=== PATIENT | female | born 1960 | race African-American/Black ===

== ENCOUNTER 2020-06-24 13:29 | Emergency (ER) | payer MEDICAID ==
[~2020-06-24] VITALS: Ht 190.5 cm; Wt 155.0 kg
[2020-06-24] MEDS ORDERED: ALBUTEROL (0.083%) 2.5MG/3ML NEB HHN STA ×2 (13:56→16:20)
[2020-06-24] MEDS ORDERED: IPRATROPIUM BROMIDE (0.02%) 0.5MG/2.5ML NEB HHN STA (13:56)
[2020-06-24] MEDS ORDERED: METHYLPREDNISOLONE SOD SUCC 125 MG/2 ML VIAL IV STA (13:56)
[2020-06-24] MEDS ORDERED: FUROSEMIDE 20MG/2ML VIAL IVP ONE (14:00)
[2020-06-24 14:31] LABS: BASOPHILS % 1.1 % (0.0-2.0); EOSINOPHILS % 0.2 % (0.0-5.0); HEMATOCRIT. 48.8 % (36.0-48.0); HEMOGLOBIN. 16.9 g/dL (12.0-16.0); LYMPHOCYTES % 25.5 % (20.0-50.0); MEAN CORPUSCULAR HEMOGLOBIN 32.1 pg (28.0-32.0); MEAN CORPUSCULAR VOLUME 92.6 fL (81.0-99.0); MEAN PLATELET VOLUME 10.6 fl (7.4-10.4); MONOCYTES % 5.1 % (2.0-8.0); NEUTROPHILS % 68.1 % (40.0-76.0); PLATELET 226 x1000/uL (130-400); RED BLOOD CELL COUNT 5.27 mill/uL (4.2-5.4)
[2020-06-24 14:38] LABS: CHLORIDE 97 mEq/L (98-107)
[2020-06-24] MEDS ORDERED: MORPHINE SULFATE 4 MG/ML CPJ (NOT FOR IM USE) IV ONE (15:15)
[2020-06-24] MEDS ORDERED: INSULIN REGULAR (HUMULIN R) 300UNITS/3ML SUBCUT ONE (15:30)
[2020-06-24 17:09] VITALS: BP 140/80
== END 2020-06-24 17:14 | disposition home or self-care (01) ==
LOC: ER 13:29
DX: J44.1 Chronic obstructive pulmonary disease with (acute) exacerbation (principal); J45.901 Unspecified asthma with (acute) exacerbation; M79.605 Pain in left leg; M79.604 Pain in right leg; E78.00 Pure hypercholesterolemia, unspecified; I10 Essential (primary) hypertension
CPT/HCPCS: 36415; 71045; 80053; 83880; 84484; 85025; 93005; 93970; 94640; 96372; 96374; 96375; 99285; J1815; J1940; J2270; J2930; Z7610

== ENCOUNTER 2020-07-08 12:05 | Inpatient (IN) | payer MEDICAID, OTHER ==
[~2020-07-08] VITALS: Ht 190.5 cm; Wt 148.3 kg
[2020-07-08] MEDS ORDERED: SODIUM CHLORIDE 0.9% 1,000 ML IV ONE (13:05)
[2020-07-08] MEDS ORDERED: ACETAMINOPHEN 325MG TABLET PO ONE (13:15)
[2020-07-08 13:17] LABS: CLARITY URINE CLEAR (CLEAR); COLOR URINE YELLOW (YELLOW); KETONES URINE 1+ (NEGATIVE); LEUKOCYTE ESTERASE URINE NEGATIVE (NEGATIVE); NITRITE URINE NEGATIVE (NEGATIVE); OCCULT BLOOD URINE NEGATIVE (NEGATIVE); PH URINE 5.5 (4.5-8.0); PROTEIN URINE NEGATIVE (NEGATIVE); SPECIFIC GRAVITY URINE 1.033 (1.005-1.030); UROBILINOGEN URINE 0.2 E.U./dL (0.2-1.0)
[2020-07-08 13:42] LABS: CHLORIDE 93 mEq/L (98-107)
[2020-07-08 13:46] LABS: BASOPHILS % 0.6 % (0.0-2.0); EOSINOPHILS % 0.7 % (0.0-5.0); HEMATOCRIT. 46.7 % (36.0-48.0); HEMOGLOBIN. 16.1 g/dL (12.0-16.0); LYMPHOCYTES % 21.8 % (20.0-50.0); MEAN CORPUSCULAR HEMOGLOBIN 31.8 pg (28.0-32.0); MEAN CORPUSCULAR VOLUME 92.4 fL (81.0-99.0); MEAN PLATELET VOLUME 10.7 fl (7.4-10.4); MONOCYTES % 8.5 % (2.0-8.0); NEUTROPHILS % 68.4 % (40.0-76.0); PLATELET 202 x1000/uL (130-400); RED BLOOD CELL COUNT 5.05 mill/uL (4.2-5.4); RED CELL DISTRIBUTION WIDTH 13.9 % (11.6-14.6)
[2020-07-08] MEDS ORDERED: FUROSEMIDE 40MG/4ML VIAL IVP ONE (14:15)
[2020-07-08] MEDS ORDERED: FLUCONAZOLE 100MG TABLET PO ONE (14:15)
[2020-07-08 14:24] LABS: HCG SCREEN NEGATIVE
[2020-07-08] MEDS ORDERED: HYDROCODONE/ACETAMINOPHEN 5/325MG TABLET PO ONE (14:30)
[2020-07-08] MEDS ORDERED: INSULIN LISPRO 100 UNITS/ML SUBCUT NR ×2 (15:00→23:00)
[2020-07-08] MEDS ORDERED: DIPHENHYDRAMINE 25MG CAPSULE PO ONE (20:00)
[2020-07-08 21:05] VITALS: BP 130/91
[2020-07-08] MEDS ORDERED: FURO-151 MT (21:48)
[2020-07-08] MEDS ORDERED: INSU100I28 SQ (21:48)
[2020-07-08] MEDS ORDERED: CARV12.545 PO (21:48)
[2020-07-08] MEDS ORDERED: HYDR-4001 PO (21:48)
[2020-07-08] MEDS ORDERED: DEXTROSE 50% WATER 50ML SYRINGE IV PRN (22:00)
[2020-07-08] MEDS ORDERED: ONDANSETRON HCL 4MG/2ML INJ IV PRN (22:00)
[2020-07-08] MEDS ORDERED: FLUCONAZOLE 150MG TABLET PO ONE (22:00)
[2020-07-08] MEDS ORDERED: DIPHENHYDRAMINE 50MG/ML VIAL IV PRN (22:00)
[2020-07-08] MEDS ORDERED: ACETAMINOPHEN 325MG TABLET PO PRN (22:00)
[2020-07-08] MEDS: BLOOD SUGAR DIAGNOSTIC STRIP TEST SCH (23:25)
[2020-07-08] MEDS: ATORVASTATIN CALCIUM 40MG TABLET PO SCH (23:27)
[2020-07-08] MEDS: ENOXAPARIN 40MG/0.4ML SYR SUBCUT SCH (23:29)
[2020-07-08] MEDS: INSULIN GLARGINE UD 100 UNITS/ML SYR SUBCUT SCH (23:30)
[2020-07-08] MEDS: HYDROCODONE/ACETAMINOPHEN 5/325MG TABLET PO PRN (23:33)
[2020-07-08] MEDS: INSULIN LISPRO 100 UNITS/ML SUBCUT SCH (23:34)
[2020-07-09] VITALS: BP 155/98
[2020-07-09] MEDS: ALBUTEROL (0.083%) 2.5MG/3ML NEB HHN PRN (00:06)
[2020-07-09 04:00] VITALS: BP 115/103
[2020-07-09] MEDS ORDERED: INSULIN LISPRO 100 UNITS/ML SUBCUT SCH ×2 (06:15)
[2020-07-09 06:50] LABS: BASOPHILS % 0.6 % (0.0-2.0); EOSINOPHILS % 0.8 % (0.0-5.0); HEMATOCRIT. 45.6 % (36.0-48.0); HEMOGLOBIN. 15.6 g/dL (12.0-16.0); LYMPHOCYTES % 31.6 % (20.0-50.0); MEAN CORPUSCULAR HEMOGLOBIN 31.9 pg (28.0-32.0); MEAN CORPUSCULAR VOLUME 93.1 fL (81.0-99.0); MONOCYTES % 11.4 % (2.0-8.0); NEUTROPHILS % 55.6 % (40.0-76.0); PLATELET 190 x1000/uL (130-400); RED BLOOD CELL COUNT 4.89 mill/uL (4.2-5.4); RED CELL DISTRIBUTION WIDTH 13.6 % (11.6-14.6)
[2020-07-09] MEDS: BLOOD SUGAR DIAGNOSTIC STRIP TEST SCH ×5 (06:59→20:32)
[2020-07-09] MEDS: INSULIN LISPRO 100 UNITS/ML SUBCUT SCH ×6 (06:59→21:03)
[2020-07-09 07:01] LABS: CHLORIDE 91 mEq/L (98-107)
[2020-07-09] MEDS: HYDROCODONE/ACETAMINOPHEN 5/325MG TABLET PO PRN ×3 (07:05→18:18)
[2020-07-09 07:19] LABS: LDL CHOLESTEROL 133 mg/dL (5-100)
[2020-07-09 07:21] LABS: HDL CHOLESTEROL 41 mg/dL (40-59)
[2020-07-09 08:00] VITALS: BP 151/98
[2020-07-09] MEDS ORDERED: DEXTROSE 50% WATER 50ML SYRINGE IV PRN (08:15)
[2020-07-09] MEDS ORDERED: POTASSIUM CHLORIDE 20MEQ TABLET SR PO SCH (09:00)
[2020-07-09] MEDS ORDERED: CARVEDILOL 12.5MG TABLET PO SCH (09:00)
[2020-07-09] MEDS: FUROSEMIDE 40MG/4ML VIAL IVP SCH ×2 (09:37→21:01)
[2020-07-09] MEDS: ENOXAPARIN 40MG/0.4ML SYR SUBCUT SCH ×2 (09:37→21:01)
[2020-07-09] MEDS: LISINOPRIL 20MG TABLET PO SCH (09:38)
[2020-07-09] MEDS: INSULIN GLARGINE UD 100 UNITS/ML SYR SUBCUT SCH (09:39)
[2020-07-09 12:00] VITALS: BP 118/84
[2020-07-09 16:00] VITALS: BP 119/78
[2020-07-09 20:00] VITALS: BP 111/72
[2020-07-09] MEDS: ATORVASTATIN CALCIUM 40MG TABLET PO SCH (21:01)
[2020-07-09] MEDS ORDERED: INSULIN GLARGINE UD 100 UNITS/ML SYR SUBCUT SCH (22:00)
[2020-07-09] MEDS: DOCUSATE SODIUM 250MG CAPSULE PO SCH (23:11)
[2020-07-09] MEDS: CLOTRIMAZOLE 1% VAGINAL CREAM 45GM VG SCH (23:55)
[2020-07-10] VITALS: BP 128/91
[2020-07-10] MEDS: BLOOD SUGAR DIAGNOSTIC STRIP TEST SCH ×4 (05:34→21:23)
[2020-07-10] MEDS: INSULIN LISPRO 100 UNITS/ML SUBCUT SCH ×7 (06:01→21:00)
[2020-07-10 08:00] VITALS: BP 105/62
[2020-07-10] MEDS: BUDESONIDE 0.5MG/2ML NEB HHN SCH ×2 (08:00→16:19)
[2020-07-10 08:19] LABS: *AMPHETAMINES SCREEN URINE NEGATIVE (NEGATIVE); *BARBITURATES SCREEN URINE NEGATIVE (NEGATIVE); *BENZODIAZEPINES SCREEN URINE NEGATIVE (NEGATIVE); *COCAINE SCREEN URINE NEGATIVE (NEGATIVE); METHADONE URINE SCREEN NEGATIVE (NEGATIVE)
[2020-07-10 08:20] LABS: CANNABINOID URINE SCREEN NEGATIVE (NEGATIVE); OPIATES URINE SCREEN PRESUMTIVE POSITIVE (NEGATIVE); PHENCYCLIDINE URINE SCREEN NEGATIVE (NEGATIVE)
[2020-07-10] MEDS: DOCUSATE SODIUM 250MG CAPSULE PO SCH ×2 (08:36→17:40)
[2020-07-10] MEDS: FUROSEMIDE 40MG/4ML VIAL IVP SCH ×2 (08:36→21:21)
[2020-07-10] MEDS: ENOXAPARIN 40MG/0.4ML SYR SUBCUT SCH ×2 (08:36→21:21)
[2020-07-10] MEDS: LISINOPRIL 20MG TABLET PO SCH (08:37)
[2020-07-10] MEDS: POTASSIUM CHLORIDE 20MEQ TABLET SR PO SCH (08:37)
[2020-07-10] MEDS: INSULIN GLARGINE UD 100 UNITS/ML SYR SUBCUT SCH ×2 (10:49→22:03)
[2020-07-10 12:00] VITALS: BP 116/83
[2020-07-10 16:00] VITALS: BP 112/69
[2020-07-10] MEDS: ALBUTEROL (0.083%) 2.5MG/3ML NEB HHN PRN (16:19)
[2020-07-10 20:00] VITALS: BP 112/67
[2020-07-10] MEDS ORDERED: INSULIN LISPRO 100 UNITS/ML SUBCUT NR (20:30)
[2020-07-10] MEDS: CLOTRIMAZOLE 1% VAGINAL CREAM 45GM VG SCH (21:21)
[2020-07-10] MEDS: ATORVASTATIN CALCIUM 40MG TABLET PO SCH (21:21)
[2020-07-11 04:00] VITALS: BP 132/92
[2020-07-11] MEDS: INSULIN LISPRO 100 UNITS/ML SUBCUT SCH ×7 (06:23→22:25)
[2020-07-11] MEDS: BLOOD SUGAR DIAGNOSTIC STRIP TEST SCH ×4 (06:25→22:25)
[2020-07-11] MEDS ORDERED: GLIPIZIDE 5MG TABLET PO SCH (07:10)
[2020-07-11 08:00] VITALS: BP 121/69
[2020-07-11] MEDS: POTASSIUM CHLORIDE 20MEQ TABLET SR PO SCH (08:41)
[2020-07-11] MEDS: DOCUSATE SODIUM 250MG CAPSULE PO SCH ×2 (08:41→17:50)
[2020-07-11] MEDS: LISINOPRIL 20MG TABLET PO SCH (08:41)
[2020-07-11] MEDS: ENOXAPARIN 40MG/0.4ML SYR SUBCUT SCH ×2 (08:42→22:20)
[2020-07-11] MEDS: FUROSEMIDE 40MG/4ML VIAL IVP SCH ×2 (08:44→21:00)
[2020-07-11] MEDS: INSULIN GLARGINE UD 100 UNITS/ML SYR SUBCUT SCH ×2 (10:44→22:42)
[2020-07-11 12:00] VITALS: BP 112/72
[2020-07-11] MEDS: BUDESONIDE 0.5MG/2ML NEB HHN SCH ×2 (13:00→22:01)
[2020-07-11 16:00] VITALS: BP 117/79
[2020-07-11 17:04] LABS: CHLORIDE 93 mEq/L (98-107)
[2020-07-11] MEDS: HYDROCODONE/ACETAMINOPHEN 5/325MG TABLET PO PRN ×2 (18:02→23:00)
[2020-07-11 20:00] VITALS: BP 110/73
[2020-07-11] MEDS: ATORVASTATIN CALCIUM 40MG TABLET PO SCH (22:19)
[2020-07-11] MEDS ORDERED: INSULIN LISPRO 100 UNITS/ML SUBCUT NR (22:27)
[2020-07-12] MEDS: CLOTRIMAZOLE 1% VAGINAL CREAM 45GM VG SCH ×2 (00:35→21:44)
[2020-07-12] MEDS: FUROSEMIDE 40MG/4ML VIAL IVP SCH ×3 (00:35→21:39)
[2020-07-12] MEDS: BLOOD SUGAR DIAGNOSTIC STRIP TEST SCH ×4 (07:04→21:00)
[2020-07-12] MEDS: GLIPIZIDE 5MG TABLET PO SCH (07:05)
[2020-07-12 08:00] VITALS: BP 127/81
[2020-07-12] MEDS: BUDESONIDE 0.5MG/2ML NEB HHN SCH ×2 (08:15→20:08)
[2020-07-12] MEDS: ALBUTEROL (0.083%) 2.5MG/3ML NEB HHN PRN (08:15)
[2020-07-12] MEDS: DOCUSATE SODIUM 250MG CAPSULE PO SCH ×2 (08:27→17:00)
[2020-07-12] MEDS: POTASSIUM CHLORIDE 20MEQ TABLET SR PO SCH (08:27)
[2020-07-12] MEDS: ENOXAPARIN 40MG/0.4ML SYR SUBCUT SCH ×2 (08:28→21:39)
[2020-07-12] MEDS: LISINOPRIL 20MG TABLET PO SCH (08:33)
[2020-07-12] MEDS: INSULIN LISPRO 100 UNITS/ML SUBCUT SCH ×7 (08:35→22:28)
[2020-07-12] MEDS ORDERED: LOSA50TA41 MT (08:52)
[2020-07-12] MEDS ORDERED: GLIP5TAB12 PO (08:52)
[2020-07-12] MEDS ORDERED: LIP40 PO (08:52)
[2020-07-12] MEDS ORDERED: ALBU18HF2 IH (08:52)
[2020-07-12] MEDS ORDERED: POTA20TA82 PO (08:52)
[2020-07-12] MEDS ORDERED: FLUT1DIS3 INH (08:52)
[2020-07-12] MEDS ORDERED: FURO-151 MT (08:52)
[2020-07-12] MEDS ORDERED: INSLIS SUBCUT (08:52)
[2020-07-12] MEDS: INSULIN GLARGINE UD 100 UNITS/ML SYR SUBCUT SCH ×2 (10:58→22:26)
[2020-07-12 12:00] VITALS: BP 118/67
[2020-07-12 16:00] VITALS: BP 133/84
[2020-07-12] MEDS ORDERED: GLIPIZIDE 10MG TABLET PO SCH (17:30)
[2020-07-12] MEDS: HYDROCODONE/ACETAMINOPHEN 5/325MG TABLET PO PRN ×2 (17:51→22:35)
[2020-07-12 20:00] VITALS: BP 119/67
[2020-07-12] MEDS: ATORVASTATIN CALCIUM 40MG TABLET PO SCH (21:39)
[2020-07-13] VITALS: BP 104/71
[2020-07-13] MEDS: HYDROCODONE/ACETAMINOPHEN 5/325MG TABLET PO PRN (03:48)
[2020-07-13 04:00] VITALS: BP 108/69
[2020-07-13] MEDS: INSULIN LISPRO 100 UNITS/ML SUBCUT SCH ×6 (06:29→17:25)
[2020-07-13 08:00] VITALS: BP 127/86
[2020-07-13] MEDS: LISINOPRIL 20MG TABLET PO SCH (08:16)
[2020-07-13] MEDS: DOCUSATE SODIUM 250MG CAPSULE PO SCH ×2 (08:16→17:22)
[2020-07-13] MEDS: POTASSIUM CHLORIDE 20MEQ TABLET SR PO SCH (08:16)
[2020-07-13] MEDS: FUROSEMIDE 40MG/4ML VIAL IVP SCH (08:17)
[2020-07-13] MEDS: ENOXAPARIN 40MG/0.4ML SYR SUBCUT SCH (08:17)
[2020-07-13] MEDS: GLIPIZIDE 5MG TABLET PO SCH (08:17)
[2020-07-13] MEDS: INSULIN GLARGINE UD 100 UNITS/ML SYR SUBCUT SCH (11:08)
[2020-07-13 12:00] VITALS: BP 123/86
[2020-07-13] MEDS: BLOOD SUGAR DIAGNOSTIC STRIP TEST SCH ×2 (12:14→17:18)
[2020-07-13] MEDS ORDERED: GLIPIZIDE 10MG TABLET PO SCH (15:15)
[2020-07-13 16:00] VITALS: BP 132/93
[2020-07-13 16:36] VITALS: BP 132/93
== END 2020-07-13 18:24 | disposition home or self-care (01) | DRG 194 ==
LOC: ER 12:05 → 8WST 19:45 → ENRESERV 20:32
PROVIDERS: ADMIT Internal Medicine; ATTEND Internal Medicine
DX: I11.0 Hypertensive heart disease with heart failure (principal); I50.33 Acute on chronic diastolic (congestive) heart failure; E87.1 Hypo-osmolality and hyponatremia; E78.5 Hyperlipidemia, unspecified; E66.9 Obesity, unspecified; E44.1 Mild protein-calorie malnutrition; E87.8 Other disorders of electrolyte and fluid balance, not elsewhere classified; B37.9 Candidiasis, unspecified; J45.909 Unspecified asthma, uncomplicated; J44.9 Chronic obstructive pulmonary disease, unspecified; E11.65 Type 2 diabetes mellitus with hyperglycemia; E78.00 Pure hypercholesterolemia, unspecified; Z88.0 Allergy status to penicillin; Z68.41 Body mass index [BMI] 40.0-44.9, adult; Z79.899 Other long term (current) drug therapy
CPT/HCPCS: 36415; 80048; 80053; 80061; 80305; 81003; 82962; 83036; 83880; 84484; 84703; 85025; 93005; 93971; 94640; 99285; J1650; J1815; J1940; J7030; J7626; Q0163

== ENCOUNTER 2020-09-30 11:48 | Emergency (ER) | payer OTHER ==
[~2020-09-30] VITALS: Ht 190.5 cm; Wt 148.0 kg
[~2020-09-30 11:48] MED LIST: ALBU18HF2 IH; FLUT1DIS3 INH; FURO-151 MT; GLIP5TAB12 PO; HYDR-4001 PO; INSLIS SUBCUT; INSU100I28 SQ; LIP40 PO; LOSA50TA41 MT; POTA20TA82 PO
[2020-09-30 14:59] LABS: BASOPHILS % 0.5 % (0.0-2.0); EOSINOPHILS % 0.2 % (0.0-5.0); HEMATOCRIT. 47.6 % (36.0-48.0); HEMOGLOBIN. 16.6 g/dL (12.0-16.0); LYMPHOCYTES % 23.1 % (20.0-50.0); MEAN CORPUSCULAR HEMOGLOBIN 32.5 pg (28.0-32.0); MEAN CORPUSCULAR VOLUME 93.2 fL (81.0-99.0); MEAN PLATELET VOLUME 11.2 fl (7.4-10.4); MONOCYTES % 9.5 % (2.0-8.0); NEUTROPHILS % 66.7 % (40.0-76.0); PLATELET 241 x1000/uL (130-400); RED BLOOD CELL COUNT 5.11 mill/uL (4.2-5.4); RED CELL DISTRIBUTION WIDTH 13.9 % (11.6-14.6)
[2020-09-30 15:20] LABS: CHLORIDE 92 mEq/L (98-107)
[2020-09-30] MEDS ORDERED: FUROSEMIDE 40MG/4ML VIAL IVP ONE (15:30)
[2020-09-30] MEDS ORDERED: INSULIN LISPRO 100 UNITS/ML SUBCUT ONE (16:30)
[2020-09-30 21:12] VITALS: BP 144/93
== END 2020-09-30 22:01 | disposition home or self-care (01) ==
LOC: ER 11:48 → CANBEDREQ 15:19 → ER 22:01
DX: I11.0 Hypertensive heart disease with heart failure (principal); I50.9 Heart failure, unspecified; E11.65 Type 2 diabetes mellitus with hyperglycemia; J44.1 Chronic obstructive pulmonary disease with (acute) exacerbation; J45.909 Unspecified asthma, uncomplicated; E78.00 Pure hypercholesterolemia, unspecified; Z98.890 Other specified postprocedural states; Z79.899 Other long term (current) drug therapy; Z79.4 Long term (current) use of insulin
CPT/HCPCS: 36415; 71045; 80053; 82962; 83880; 84484; 85025; 93005; 93970; 96372; 96374; 99285; J1815; J1940

== ENCOUNTER 2020-12-24 10:17 | Emergency (ER) | payer OTHER ==
[~2020-12-24] VITALS: Ht 177.8 cm; Wt 80.0 kg
[~2020-12-24 10:17] MED LIST changes: +AMLO10TA80 PO; +HYDR-4009 MT; +HYDR-4135 PO; +LANTUSUD SUBCUT; +LOSA100T3 PO
[2020-12-24] MEDS ORDERED: KETOROLAC 60MG/2ML VIAL IM ONE (11:00)
[2020-12-24] MEDS ORDERED: SULFAMETHOXAZOLE/TRIMETHOPRIM 800/160MG TABLET PO ONE (11:00)
[2020-12-24] MEDS ORDERED: CEPHALEXIN 250MG CAPSULE PO ONE (11:00)
[2020-12-24] MEDS ORDERED: SULF1TAB48 MT (12:17)
[2020-12-24] MEDS ORDERED: IBUP-2028 MT (12:17)
[2020-12-24] MEDS ORDERED: CEPH250C2 MT (12:17)
[2020-12-24] MEDS ORDERED: OXYC-100 MT (12:17)
[2020-12-24 12:55] VITALS: BP 156/99
== END 2020-12-24 12:56 | disposition home or self-care (01) ==
LOC: ER 10:31
DX: L03.312 Cellulitis of back [any part except buttock and flank] (principal); M54.5 Low back pain; J45.909 Unspecified asthma, uncomplicated; I11.0 Hypertensive heart disease with heart failure; I50.9 Heart failure, unspecified; E11.9 Type 2 diabetes mellitus without complications; E78.00 Pure hypercholesterolemia, unspecified; Z79.4 Long term (current) use of insulin; Z88.0 Allergy status to penicillin; Z88.6 Allergy status to analgesic agent
CPT/HCPCS: 93005; 96372; 99283; J1885

== ENCOUNTER 2020-12-25 18:47 | Emergency (ER) | payer OTHER ==
[~2020-12-25] VITALS: Ht 172.7 cm; Wt 113.0 kg
[~2020-12-25 18:47] MED LIST changes: +CEPH250C2 MT; +IBUP-2028 MT; +OXYC-100 MT; +SULF1TAB48 MT
[2020-12-25] MEDS ORDERED: HYDROCODONE/ACETAMINOPHEN 5/325MG TABLET PO ONE (20:00)
[2020-12-25] MEDS ORDERED: MORPHINE SULFATE 10 MG/ML CPJ IM ONE (20:30)
[2020-12-25] MEDS ORDERED: ONDANSETRON 4MG ODT PO ONE (20:30)
[2020-12-25] MEDS ORDERED: MAGNESIUM CITRATE 300ML SOLUTION PO ONE (21:30)
[2020-12-25 22:30] VITALS: BP 126/76
== END 2020-12-25 23:39 | disposition home or self-care (01) ==
LOC: ER 18:47
DX: M54.9 Dorsalgia, unspecified (principal); K59.00 Constipation, unspecified; J44.9 Chronic obstructive pulmonary disease, unspecified; I11.0 Hypertensive heart disease with heart failure; I50.9 Heart failure, unspecified; E11.9 Type 2 diabetes mellitus without complications; Z79.4 Long term (current) use of insulin
CPT/HCPCS: 74021; 74176; 93005; 96372; 99284; J2270; Q0162

== ENCOUNTER 2021-09-01 12:30 | Inpatient (IN) | payer OTHER ==
[~2021-09-01] VITALS: Ht 190.5 cm; Wt 149.7 kg
[2021-09-01] MEDS ORDERED: ALBUTEROL (0.083%) 2.5MG/3ML NEB HHN STA (15:05)
[2021-09-01] MEDS ORDERED: IPRATROPIUM BROMIDE (0.02%) 0.5MG/2.5ML NEB HHN STA (15:05)
[2021-09-01] MEDS ORDERED: METHYLPREDNISOLONE SOD SUCC 125 MG/2 ML VIAL IV STA (15:05)
[2021-09-01] MEDS ORDERED: MORPHINE SULFATE 4 MG/ML CPJ (NOT FOR IM USE) IV STA (15:24)
[2021-09-01] MEDS ORDERED: ONDANSETRON HCL 4MG/2ML INJ IV STA (15:24)
[2021-09-01] MEDS ORDERED: NITROGLYCERIN OINT 1GM/INCH UDPKT TD ONE (15:30)
[2021-09-01 15:44] LABS: BASOPHILS % 0.5 % (0.0-2.0); EOSINOPHILS % 0.2 % (0.0-5.0); HEMATOCRIT. 44.2 % (36.0-48.0); HEMOGLOBIN. 15.4 g/dL (12.0-16.0); LYMPHOCYTES % 19.2 % (20.0-50.0); MEAN CORPUSCULAR HEMOGLOBIN 32.1 pg (28.0-32.0); MEAN CORPUSCULAR VOLUME 92.3 fL (81.0-99.0); MEAN PLATELET VOLUME 9.4 fl (7.4-10.4); MONOCYTES % 7.3 % (2.0-8.0); NEUTROPHILS % 72.8 % (40.0-76.0); PLATELET 276 x1000/uL (130-400); RED BLOOD CELL COUNT 4.79 mill/uL (4.2-5.4)
[2021-09-01 15:50] LABS: CHLORIDE 97 mEq/L (98-107)
[2021-09-01 16:05] LABS: INR 0.9; PROTHROMBIN TIME 10.1 sec (9.6-11.0)
[2021-09-01] MEDS ORDERED: SODIUM CHLORIDE 0.9% 500 ML IV ONE (16:30)
[2021-09-01] MEDS ORDERED: INSULIN REGULAR (HUMULIN R) 300UNITS/3ML VIAL SUBCUT NR ×2 (16:30→20:15)
[2021-09-01] MEDS ORDERED: INSULIN REGULAR (HUMULIN R) UD 100 UNITS/ML SYR SUBCUT ONE (19:45)
[2021-09-01] MEDS ORDERED: MORPHINE SULFATE 2 MG/ML CPJ (NOT FOR IM USE) IV PRN (20:45)
[2021-09-01] MEDS ORDERED: INSULIN LISPRO 100 UNITS/ML SUBCUT NR (22:15)
[2021-09-01] MEDS ORDERED: ALBUTEROL (0.083%) 2.5MG/3ML NEB HHN NR ×2 (23:00→23:15)
[2021-09-01] MEDS ORDERED: IPRATROPIUM BROMIDE (0.02%) 0.5MG/2.5ML NEB HHN NR ×2 (23:00→23:15)
[2021-09-01] MEDS ORDERED: INSULIN LISPRO 100 UNITS/ML SUBCUT SCH (23:45)
[2021-09-02] VITALS (8 sets, daily range): BP systolic 122–155; BP diastolic 75–90
[2021-09-02] MEDS ORDERED: INSULIN REGULAR (HUMULIN R) 300UNITS/3ML VIAL SUBCUT SCH (00:15)
[2021-09-02] MEDS ORDERED: INSULIN LISPRO 100 UNITS/ML SUBCUT SCH ×4 (01:00→05:00)
[2021-09-02 01:01] LABS: CLARITY URINE CLEAR (CLEAR); COLOR URINE YELLOW (YELLOW); KETONES URINE NEGATIVE (NEGATIVE); LEUKOCYTE ESTERASE URINE NEGATIVE (NEGATIVE); NITRITE URINE NEGATIVE (NEGATIVE); OCCULT BLOOD URINE NEGATIVE (NEGATIVE); PH URINE 5.5 (4.5-8.0); PROTEIN URINE NEGATIVE (NEGATIVE); SPECIFIC GRAVITY URINE 1.027 (1.005-1.030); UROBILINOGEN URINE 0.2 E.U./dL (0.2-1.0)
[2021-09-02 03:41] LABS: CHLORIDE 95 mEq/L (98-107)
[2021-09-02] MEDS ORDERED: FURO-151 PO (07:00)
[2021-09-02] MEDS ORDERED: AMLO10TA80 MT (07:00)
[2021-09-02] MEDS ORDERED: HYDR100T26 PO (07:00)
[2021-09-02] MEDS ORDERED: LOSA100T32 MT (07:00)
[2021-09-02] MEDS ORDERED: DEXTROSE 50% WATER 50ML SYRINGE IV PRN (07:30)
[2021-09-02] MEDS ORDERED: NALOXONE HCL 0.4MG/ML VIAL IV PRN (07:45)
[2021-09-02] MEDS ORDERED: MORPHINE SULFATE 2 MG/ML CPJ (NOT FOR IM USE) IV PRN (08:15)
[2021-09-02] MEDS ORDERED: *PATIENT'S OWN MEDICATION STORAGE XX SCH (08:30)
[2021-09-02] MEDS ORDERED: FLUCONAZOLE 50MG TABLET PO ONE (09:15)
[2021-09-02 09:42] LABS: BASOPHILS % 0.1 % (0.0-2.0); HEMATOCRIT. 42.6 % (36.0-48.0); HEMOGLOBIN. 14.3 g/dL (12.0-16.0); LYMPHOCYTES % 10.6 % (20.0-50.0); MEAN CORPUSCULAR HEMOGLOBIN 31.2 pg (28.0-32.0); MEAN CORPUSCULAR VOLUME 93.2 fL (81.0-99.0); MEAN PLATELET VOLUME 9.5 fl (7.4-10.4); MONOCYTES % 4.8 % (2.0-8.0); NEUTROPHILS % 84.5 % (40.0-76.0); PLATELET 249 x1000/uL (130-400); RED BLOOD CELL COUNT 4.57 mill/uL (4.2-5.4); RED CELL DISTRIBUTION WIDTH 14.2 % (11.6-14.6)
[2021-09-02] MEDS: ENOXAPARIN 40MG/0.4ML SYR SUBCUT SCH ×2 (09:47→20:45)
[2021-09-02] MEDS: LOSARTAN POTASSIUM 100 MG TABLET PO SCH (09:48)
[2021-09-02] MEDS: METFORMIN HCL 500MG TABLET PO SCH ×2 (09:48→18:10)
[2021-09-02] MEDS: AMLODIPINE 10MG TABLET PO SCH (09:48)
[2021-09-02] MEDS: ASPIRIN 81MG TABLET PO SCH (09:49)
[2021-09-02 09:59] LABS: CHLORIDE 96 mEq/L (98-107)
[2021-09-02] MEDS ORDERED: FLUCONAZOLE 150MG TABLET PO NR (10:00)
[2021-09-02] MEDS ORDERED: INSULIN GLARGINE UD 100 UNITS/ML SYR SUBCUT SCH (10:00)
[2021-09-02 10:05] LABS: LDL CHOLESTEROL 155 mg/dL (5-100)
[2021-09-02 10:07] LABS: HDL CHOLESTEROL 74 mg/dL (40-59)
[2021-09-02] MEDS ORDERED: INSULIN LISPRO 100 UNITS/ML SUBCUT NR ×2 (10:45→13:15)
[2021-09-02] MEDS: HYDROCODONE/ACETAMINOPHEN 5/325MG TABLET PO PRN ×3 (10:45→20:44)
[2021-09-02] MEDS: BLOOD SUGAR DIAGNOSTIC STRIP TEST SCH ×3 (12:10→21:00)
[2021-09-02] MEDS: INSULIN LISPRO 100 UNITS/ML SUBCUT SCH ×5 (12:40→22:19)
[2021-09-02] MEDS: FUROSEMIDE 100MG/10ML VIAL IVP SCH ×2 (13:34→20:44)
[2021-09-02] MEDS: IPRATROPIUM/ALBUTEROL 0.5-3(2.5)MG/3ML NEB HHN SCH ×2 (15:48→20:02)
[2021-09-02] MEDS: ATORVASTATIN CALCIUM 40MG TABLET PO SCH (20:45)
[2021-09-02] MEDS: CLOTRIMAZOLE 1% VAGINAL CREAM 45GM VG SCH (22:20)
[2021-09-02] MEDS: INSULIN GLARGINE UD 100 UNITS/ML SYR SUBCUT SCH (22:20)
[2021-09-03] VITALS: BP 138/70
[2021-09-03] MEDS: IPRATROPIUM/ALBUTEROL 0.5-3(2.5)MG/3ML NEB HHN SCH ×7 (00:17→20:20)
[2021-09-03 04:00] VITALS: BP 122/89
[2021-09-03] MEDS ORDERED: INSULIN LISPRO 100 UNITS/ML SUBCUT NR ×2 (05:45→09:00)
[2021-09-03] MEDS: INSULIN LISPRO 100 UNITS/ML SUBCUT SCH ×7 (05:50→20:55)
[2021-09-03] MEDS: BLOOD SUGAR DIAGNOSTIC STRIP TEST SCH ×4 (05:50→20:50)
[2021-09-03] MEDS: FUROSEMIDE 100MG/10ML VIAL IVP SCH ×2 (05:50→17:31)
[2021-09-03] MEDS: HYDROCODONE/ACETAMINOPHEN 5/325MG TABLET PO PRN ×3 (06:07→20:50)
[2021-09-03] MEDS ORDERED: INSULIN LISPRO 100 UNITS/ML SUBCUT SCH (07:30)
[2021-09-03 08:00] VITALS: BP 128/78
[2021-09-03] MEDS: ASPIRIN 81MG TABLET PO SCH (08:29)
[2021-09-03] MEDS: AMLODIPINE 10MG TABLET PO SCH (08:29)
[2021-09-03] MEDS: LOSARTAN POTASSIUM 100 MG TABLET PO SCH (08:29)
[2021-09-03] MEDS: ENOXAPARIN 40MG/0.4ML SYR SUBCUT SCH ×2 (08:29→20:49)
[2021-09-03] MEDS: METFORMIN HCL 500MG TABLET PO SCH ×2 (08:30→17:31)
[2021-09-03] MEDS: INSULIN GLARGINE UD 100 UNITS/ML SYR SUBCUT SCH ×2 (10:29→20:54)
[2021-09-03 12:00] VITALS: BP 136/82
[2021-09-03] MEDS ORDERED: METOLAZONE 2.5MG TABLET PO NR (13:00)
[2021-09-03 16:00] VITALS: BP 148/84
[2021-09-03 18:45] LABS: *AMPHETAMINES SCREEN URINE NEGATIVE (NEGATIVE); *BARBITURATES SCREEN URINE NEGATIVE (NEGATIVE); *BENZODIAZEPINES SCREEN URINE NEGATIVE (NEGATIVE); *COCAINE SCREEN URINE NEGATIVE (NEGATIVE); METHADONE URINE SCREEN NEGATIVE (NEGATIVE)
[2021-09-03 18:46] LABS: CANNABINOID URINE SCREEN NEGATIVE (NEGATIVE); OPIATES URINE SCREEN PRESUMTIVE POSITIVE (NEGATIVE); PHENCYCLIDINE URINE SCREEN NEGATIVE (NEGATIVE)
[2021-09-03] MEDS ORDERED: NALOXONE HCL 0.4MG/ML VIAL IV PRN (19:45)
[2021-09-03 20:00] VITALS: BP 132/82
[2021-09-03] MEDS: CLOTRIMAZOLE 1% VAGINAL CREAM 45GM VG SCH (20:48)
[2021-09-03] MEDS: DOCUSATE SODIUM 250MG CAPSULE PO PRN (20:49)
[2021-09-03] MEDS: ATORVASTATIN CALCIUM 40MG TABLET PO SCH (20:50)
[2021-09-04] VITALS: BP 132/95
[2021-09-04] MEDS: IPRATROPIUM/ALBUTEROL 0.5-3(2.5)MG/3ML NEB HHN SCH ×6 (00:16→20:57)
[2021-09-04 04:00] VITALS: BP 107/62
[2021-09-04 07:04] LABS: BASOPHILS % 0.7 % (0.0-2.0); EOSINOPHILS % 0.7 % (0.0-5.0); HEMATOCRIT. 43.3 % (36.0-48.0); HEMOGLOBIN. 15.3 g/dL (12.0-16.0); LYMPHOCYTES % 37.3 % (20.0-50.0); MEAN CORPUSCULAR HEMOGLOBIN 31.9 pg (28.0-32.0); MEAN CORPUSCULAR VOLUME 90.6 fL (81.0-99.0); MEAN PLATELET VOLUME 10.4 fl (7.4-10.4); MONOCYTES % 10.8 % (2.0-8.0); NEUTROPHILS % 50.5 % (40.0-76.0); PLATELET 262 x1000/uL (130-400); RED BLOOD CELL COUNT 4.78 mill/uL (4.2-5.4); RED CELL DISTRIBUTION WIDTH 13.8 % (11.6-14.6)
[2021-09-04] MEDS: BLOOD SUGAR DIAGNOSTIC STRIP TEST SCH ×4 (07:05→21:49)
[2021-09-04] MEDS: INSULIN LISPRO 100 UNITS/ML SUBCUT SCH ×9 (07:06→21:00)
[2021-09-04] MEDS: HYDROCODONE/ACETAMINOPHEN 5/325MG TABLET PO PRN (07:08)
[2021-09-04] MEDS: FUROSEMIDE 100MG/10ML VIAL IVP SCH ×2 (07:10→17:12)
[2021-09-04] MEDS: METFORMIN HCL 500MG TABLET PO SCH ×2 (07:14→17:21)
[2021-09-04 07:41] LABS: CHLORIDE 94 mEq/L (98-107)
[2021-09-04 08:00] VITALS: BP 135/91
[2021-09-04] MEDS: ENOXAPARIN 40MG/0.4ML SYR SUBCUT SCH ×2 (09:47→21:00)
[2021-09-04] MEDS: AMLODIPINE 10MG TABLET PO SCH (09:48)
[2021-09-04] MEDS: LOSARTAN POTASSIUM 100 MG TABLET PO SCH (09:48)
[2021-09-04] MEDS: ASPIRIN 81MG TABLET PO SCH (09:48)
[2021-09-04] MEDS: DOCUSATE SODIUM 250MG CAPSULE PO PRN (09:58)
[2021-09-04] MEDS: INSULIN GLARGINE UD 100 UNITS/ML SYR SUBCUT SCH ×2 (10:00→22:04)
[2021-09-04 12:00] VITALS: BP 117/81
[2021-09-04] MEDS ORDERED: METOLAZONE 2.5MG TABLET PO SCH (12:30)
[2021-09-04] MEDS ORDERED: KETOROLAC 15MG/ML VIAL IV PRN (12:30)
[2021-09-04] MEDS ORDERED: FLUCONAZOLE 150MG TABLET PO SCH (14:00)
[2021-09-04 16:00] VITALS: BP 120/95
[2021-09-04] MEDS ORDERED: LACTULOSE 20G/30ML UDC PO NR (17:30)
[2021-09-04 20:00] VITALS: BP 129/88
[2021-09-04] MEDS: ATORVASTATIN CALCIUM 40MG TABLET PO SCH (22:02)
[2021-09-04] MEDS: CLOTRIMAZOLE 1% VAGINAL CREAM 45GM VG SCH (22:04)
[2021-09-05] MEDS: IPRATROPIUM/ALBUTEROL 0.5-3(2.5)MG/3ML NEB HHN SCH ×6 (00:42→19:45)
[2021-09-05 04:00] VITALS: BP 118/79
[2021-09-05] MEDS: FUROSEMIDE 100MG/10ML VIAL IVP SCH ×2 (05:34→17:40)
[2021-09-05] MEDS: BLOOD SUGAR DIAGNOSTIC STRIP TEST SCH ×4 (06:35→21:00)
[2021-09-05] MEDS: METFORMIN HCL 500MG TABLET PO SCH ×2 (06:50→17:40)
[2021-09-05] MEDS: INSULIN LISPRO 100 UNITS/ML SUBCUT SCH ×5 (08:32→22:19)
[2021-09-05] MEDS: LOSARTAN POTASSIUM 100 MG TABLET PO SCH (08:40)
[2021-09-05] MEDS: AMLODIPINE 10MG TABLET PO SCH (08:40)
[2021-09-05] MEDS: ENOXAPARIN 40MG/0.4ML SYR SUBCUT SCH ×2 (08:40→22:26)
[2021-09-05] MEDS: ASPIRIN 81MG TABLET PO SCH (08:40)
[2021-09-05] MEDS: INSULIN GLARGINE UD 100 UNITS/ML SYR SUBCUT SCH ×2 (10:00→22:28)
[2021-09-05] MEDS ORDERED: TRAMADOL 50MG TABLET PO PRN (11:45)
[2021-09-05 12:00] VITALS: BP 135/78
[2021-09-05] MEDS ORDERED: METF-414 PO (12:30)
[2021-09-05] MEDS ORDERED: FLUT1DIS3 INH (12:30)
[2021-09-05] MEDS ORDERED: LIP40 PO (12:30)
[2021-09-05] MEDS ORDERED: LOSA100T3 PO (12:30)
[2021-09-05] MEDS ORDERED: FURO80TA87 MT (12:30)
[2021-09-05] MEDS ORDERED: AMLO10TA80 PO (12:30)
[2021-09-05] MEDS ORDERED: IPRA3AMP9 HHN (12:30)
[2021-09-05] MEDS ORDERED: POTA20TA82 MT (12:30)
[2021-09-05] MEDS ORDERED: LANTUSUD SUBCUT (12:30)
[2021-09-05] MEDS ORDERED: ALBU18HF2 IH (12:30)
[2021-09-05 20:00] VITALS: BP 145/93
[2021-09-05] MEDS: CLOTRIMAZOLE 1% VAGINAL CREAM 45GM VG SCH (21:00)
[2021-09-05] MEDS: ATORVASTATIN CALCIUM 40MG TABLET PO SCH (22:19)
[2021-09-06] MEDS: IPRATROPIUM/ALBUTEROL 0.5-3(2.5)MG/3ML NEB HHN SCH ×5 (01:09→20:00)
[2021-09-06 04:00] VITALS: BP 149/94
[2021-09-06] MEDS: FUROSEMIDE 100MG/10ML VIAL IVP SCH (06:32)
[2021-09-06] MEDS: INSULIN LISPRO 100 UNITS/ML SUBCUT SCH ×7 (06:41→21:00)
[2021-09-06] MEDS: BLOOD SUGAR DIAGNOSTIC STRIP TEST SCH ×4 (06:41→21:00)
[2021-09-06] MEDS: METFORMIN HCL 500MG TABLET PO SCH ×2 (07:40→16:50)
[2021-09-06] MEDS: ENOXAPARIN 40MG/0.4ML SYR SUBCUT SCH ×2 (08:39→21:21)
[2021-09-06] MEDS: AMLODIPINE 10MG TABLET PO SCH (08:39)
[2021-09-06] MEDS: ASPIRIN 81MG TABLET PO SCH (08:39)
[2021-09-06] MEDS: LOSARTAN POTASSIUM 100 MG TABLET PO SCH (08:39)
[2021-09-06] MEDS: INSULIN GLARGINE UD 100 UNITS/ML SYR SUBCUT SCH ×2 (09:41→21:15)
[2021-09-06 10:53] VITALS: BP 125/67
[2021-09-06 12:00] VITALS: BP 136/98
[2021-09-06] MEDS ORDERED: INSULIN LISPRO 100 UNITS/ML SUBCUT NR (12:30)
[2021-09-06 16:00] VITALS: BP 147/98
[2021-09-06] MEDS ORDERED: DOCUSATE SODIUM SUGAR FREE 100MG/10ML UDC PO PRN (17:00)
[2021-09-06] MEDS: HYDROCODONE/ACETAMINOPHEN 5/325MG TABLET PO PRN (17:12)
[2021-09-06] MEDS: FUROSEMIDE 40MG TABLET PO SCH (17:12)
[2021-09-06 20:00] VITALS: BP 109/66
[2021-09-06] MEDS: CLOTRIMAZOLE 1% VAGINAL CREAM 45GM VG SCH (21:00)
[2021-09-06] MEDS: ATORVASTATIN CALCIUM 40MG TABLET PO SCH (21:14)
[2021-09-07] MEDS: IPRATROPIUM/ALBUTEROL 0.5-3(2.5)MG/3ML NEB HHN SCH ×3 (04:00→08:26)
[2021-09-07] MEDS: FUROSEMIDE 40MG TABLET PO SCH (06:26)
[2021-09-07] MEDS: INSULIN LISPRO 100 UNITS/ML SUBCUT SCH ×2 (07:10→07:40)
[2021-09-07] MEDS: METFORMIN HCL 500MG TABLET PO SCH (07:40)
[2021-09-07] MEDS: BLOOD SUGAR DIAGNOSTIC STRIP TEST SCH (07:57)
[2021-09-07 08:00] VITALS: BP 125/67
[2021-09-07] MEDS: AMLODIPINE 10MG TABLET PO SCH (08:42)
[2021-09-07] MEDS: LOSARTAN POTASSIUM 100 MG TABLET PO SCH (08:42)
[2021-09-07] MEDS: ASPIRIN 81MG TABLET PO SCH (08:43)
[2021-09-07] MEDS: ENOXAPARIN 40MG/0.4ML SYR SUBCUT SCH (08:44)
[2021-09-07] MEDS: INSULIN GLARGINE UD 100 UNITS/ML SYR SUBCUT SCH (09:14)
== END 2021-09-07 12:30 | disposition home or self-care (01) | DRG 420 ==
LOC: ER 12:30 → EDBEDREQTM 16:28 → 8WST 19:45 → EDBEDREQ 19:52 → EDBEDREQTM 19:52 → ENRESERV 22:24 → CANRESERV 22:24 → CANBEDREQ 22:36 → ENRESERV 09-02 03:33
PROVIDERS: ADMIT Internal Medicine; ATTEND Internal Medicine
DX: E11.00 Type 2 diabetes mellitus with hyperosmolarity without nonketotic hyperglycemic-hyperosmolar coma (NKHHC) (principal); I50.33 Acute on chronic diastolic (congestive) heart failure; I11.0 Hypertensive heart disease with heart failure; E87.1 Hypo-osmolality and hyponatremia; E87.8 Other disorders of electrolyte and fluid balance, not elsewhere classified; E11.65 Type 2 diabetes mellitus with hyperglycemia; E66.9 Obesity, unspecified; E78.00 Pure hypercholesterolemia, unspecified; I87.8 Other specified disorders of veins; Z60.2 Problems related to living alone; E78.5 Hyperlipidemia, unspecified; Z20.822 Contact with and (suspected) exposure to COVID-19; J44.9 Chronic obstructive pulmonary disease, unspecified; Z82.49 Family history of ischemic heart disease and other diseases of the circulatory system; Z83.3 Family history of diabetes mellitus; Z88.0 Allergy status to penicillin; Z88.8 Allergy status to other drugs, medicaments and biological substances; Z79.4 Long term (current) use of insulin; Z79.899 Other long term (current) drug therapy; Z71.3 Dietary counseling and surveillance; Z68.41 Body mass index [BMI] 40.0-44.9, adult
CPT/HCPCS: 36415; 71045; 80048; 80053; 80061; 80305; 81003; 82010; 82962; 83036; 83880; 84484; 85025; 87426; 93005; 93970; 94640; 99285; C1893; J1650; J1815; J1940; J2270; J2405; J2930

== ENCOUNTER 2021-09-29 12:23 | Inpatient (IN) | payer OTHER ==
[~2021-09-29] VITALS: Ht 191.8 cm; Wt 152.4 kg
[2021-09-29] MEDS: INSULIN GLARGINE UD 100 UNITS/ML SYR SUBCUT SCH (00:50)
[~2021-09-29 12:23] MED LIST changes: +AMLO10TA80 MT; +FURO-151 PO; +FURO80TA87 MT; +HYDR100T26 PO; +IPRA3AMP9 HHN; +LOSA100T32 MT; +METF-414 PO; +POTA20TA82 MT
[2021-09-29 14:27] LABS: BASOPHILS % 0.7 % (0.0-2.0); EOSINOPHILS % 0.4 % (0.0-5.0); HEMATOCRIT. 43.6 % (36.0-48.0); HEMOGLOBIN. 14.8 g/dL (12.0-16.0); LYMPHOCYTES % 22.9 % (20.0-50.0); MEAN CORPUSCULAR HEMOGLOBIN 31.3 pg (28.0-32.0); MEAN CORPUSCULAR VOLUME 92.5 fL (81.0-99.0); MEAN PLATELET VOLUME 9.8 fl (7.4-10.4); MONOCYTES % 9.2 % (2.0-8.0); NEUTROPHILS % 66.8 % (40.0-76.0); PLATELET 242 x1000/uL (130-400); RED BLOOD CELL COUNT 4.71 mill/uL (4.2-5.4); RED CELL DISTRIBUTION WIDTH 14.2 % (11.6-14.6)
[2021-09-29 14:36] LABS: CHLORIDE 99 mEq/L (98-107)
[2021-09-29 14:38] LABS: ETHANOL BLOOD < 10 mg/dL
[2021-09-29 14:43] LABS: CLARITY URINE CLEAR (CLEAR); COLOR URINE YELLOW (YELLOW); KETONES URINE NEGATIVE (NEGATIVE); LEUKOCYTE ESTERASE URINE NEGATIVE (NEGATIVE); NITRITE URINE NEGATIVE (NEGATIVE); OCCULT BLOOD URINE NEGATIVE (NEGATIVE); PROTEIN URINE NEGATIVE (NEGATIVE); SPECIFIC GRAVITY URINE 1.033 (1.005-1.030); UROBILINOGEN URINE 0.2 E.U./dL (0.2-1.0)
[2021-09-29 15:07] LABS: *AMPHETAMINES SCREEN URINE NEGATIVE (NEGATIVE); *BARBITURATES SCREEN URINE NEGATIVE (NEGATIVE); *BENZODIAZEPINES SCREEN URINE NEGATIVE (NEGATIVE); *COCAINE SCREEN URINE PRESUMTIVE POSITIVE (NEGATIVE); METHADONE URINE SCREEN NEGATIVE (NEGATIVE); OPIATES URINE SCREEN NEGATIVE (NEGATIVE); PHENCYCLIDINE URINE SCREEN NEGATIVE (NEGATIVE)
[2021-09-29 15:08] LABS: CANNABINOID URINE SCREEN NEGATIVE (NEGATIVE)
[2021-09-29] MEDS ORDERED: ALBUTEROL (0.083%) 2.5MG/3ML NEB HHN ONE (16:00)
[2021-09-29] MEDS ORDERED: INSULIN REGULAR (HUMULIN R) 300UNITS/3ML VIAL IV NR (16:43)
[2021-09-29] MEDS ORDERED: ASPIRIN 81MG TABLET PO SCH (17:00)
[2021-09-29] MEDS ORDERED: FUROSEMIDE 20MG TABLET PO SCH (17:00)
[2021-09-29] MEDS ORDERED: NYSTATIN 100,000 UNITS/GM CREAM 15GM TOP ONE (17:00)
[2021-09-29] MEDS ORDERED: DEXTROSE 50% WATER 50ML SYRINGE IV PRN (21:00)
[2021-09-29] MEDS ORDERED: CLONIDINE 0.1MG TABLET PO PRN (21:15)
[2021-09-29] MEDS ORDERED: NALOXONE HCL 0.4MG/ML VIAL IV PRN (21:15)
[2021-09-29] MEDS: INSULIN LISPRO (MEDIUM DOSE) 100 UNITS/ML SUBCUT SCH ×2 (21:26→21:36)
[2021-09-29] MEDS: BLOOD SUGAR DIAGNOSTIC STRIP TEST SCH (21:37)
[2021-09-30] VITALS: BP 169/94
[2021-09-30] MEDS ORDERED: *PATIENT'S OWN MEDICATION STORAGE XX SCH (00:45)
[2021-09-30] MEDS: AMLODIPINE 10MG TABLET PO SCH ×2 (00:52→08:15)
[2021-09-30 04:00] VITALS: BP 147/99
[2021-09-30] MEDS ORDERED: IPRATROPIUM/ALBUTEROL 0.5-3(2.5)MG/3ML NEB HHN PRN (04:30)
[2021-09-30] MEDS ORDERED: NALOXONE HCL 0.4 MG/ML 1ML VIAL IV PRN (04:45)
[2021-09-30] MEDS: IPRATROPIUM/ALBUTEROL 0.5-3(2.5)MG/3ML NEB HHN SCH ×2 (05:29→08:38)
[2021-09-30] MEDS: BLOOD SUGAR DIAGNOSTIC STRIP TEST SCH ×4 (06:28→21:24)
[2021-09-30] MEDS ORDERED: INSULIN LISPRO 100 UNITS/ML SUBCUT SCH (06:30)
[2021-09-30] MEDS: INSULIN LISPRO 100 UNITS/ML SUBCUT SCH ×4 (06:39→21:24)
[2021-09-30 08:00] VITALS: BP 136/74
[2021-09-30] MEDS: METFORMIN HCL 500MG TABLET PO SCH ×2 (08:15→17:32)
[2021-09-30] MEDS: ASPIRIN 81MG TABLET PO SCH (08:15)
[2021-09-30] MEDS: ENOXAPARIN 40MG/0.4ML SYR SUBCUT SCH ×2 (08:16→21:22)
[2021-09-30] MEDS ORDERED: ENOXAPARIN 40MG/0.4ML SYR SUBCUT SCH (09:00)
[2021-09-30] MEDS ORDERED: AMLODIPINE 10MG TABLET PO SCH (09:00)
[2021-09-30 10:35] LABS: HEMOGLOBIN 14.5 g/dL (12.0-16.0); MEAN CORPUSCULAR HEMOGLOBIN 30.9 pg (28.0-32.0); MEAN CORPUSCULAR VOLUME 91.5 fL (81.0-99.0); PLATELET 235 x1000/uL (130-400); RED CELL DISTRIBUTION WIDTH 14.1 % (11.6-14.6)
[2021-09-30 10:40] LABS: CHLORIDE 99 mEq/L (98-107)
[2021-09-30] MEDS: INSULIN GLARGINE UD 100 UNITS/ML SYR SUBCUT SCH ×2 (11:23→21:24)
[2021-09-30 12:00] VITALS: BP 157/22
[2021-09-30] MEDS ORDERED: INSULIN LISPRO 100 UNITS/ML SUBCUT NR (12:15)
[2021-09-30] MEDS: FUROSEMIDE 100MG/10ML VIAL IVP SCH ×2 (12:32→17:32)
[2021-09-30 16:00] VITALS: BP 121/89
[2021-09-30 20:34] VITALS: BP 148/106
[2021-09-30] MEDS: ATORVASTATIN CALCIUM 40MG TABLET PO SCH (21:22)
[2021-09-30] MEDS: CLOTRIMAZOLE 1% VAGINAL CREAM 45GM VG SCH (21:23)
[2021-10-01] MEDS: FUROSEMIDE 100MG/10ML VIAL IVP SCH ×2 (06:17→17:04)
[2021-10-01] MEDS: INSULIN LISPRO 100 UNITS/ML SUBCUT SCH ×5 (06:18→21:15)
[2021-10-01] MEDS: METFORMIN HCL 500MG TABLET PO SCH ×2 (06:45→17:06)
[2021-10-01] MEDS: BLOOD SUGAR DIAGNOSTIC STRIP TEST SCH ×4 (06:45→21:47)
[2021-10-01] MEDS: IPRATROPIUM/ALBUTEROL 0.5-3(2.5)MG/3ML NEB HHN SCH ×3 (07:39→20:36)
[2021-10-01 08:00] VITALS: BP 122/81
[2021-10-01] MEDS: ASPIRIN 81MG TABLET PO SCH (09:47)
[2021-10-01] MEDS: INSULIN GLARGINE UD 100 UNITS/ML SYR SUBCUT SCH ×2 (09:51→21:15)
[2021-10-01] MEDS: AMLODIPINE 10MG TABLET PO SCH (09:51)
[2021-10-01] MEDS: ENOXAPARIN 40MG/0.4ML SYR SUBCUT SCH ×2 (11:45→21:16)
[2021-10-01] MEDS: HYDROCODONE/ACETAMINOPHEN 10/325MG TABLET PO PRN (11:47)
[2021-10-01 12:00] VITALS: BP 128/83
[2021-10-01 16:00] VITALS: BP 109/68
[2021-10-01 20:00] VITALS: BP 127/91
[2021-10-01] MEDS: ATORVASTATIN CALCIUM 40MG TABLET PO SCH (21:14)
[2021-10-01] MEDS: CLOTRIMAZOLE 1% VAGINAL CREAM 45GM VG SCH (21:17)
[2021-10-02] VITALS (7 sets, daily range): BP systolic 112–129; BP diastolic 66–91
[2021-10-02] MEDS: BLOOD SUGAR DIAGNOSTIC STRIP TEST SCH ×4 (06:40→20:49)
[2021-10-02] MEDS: FUROSEMIDE 100MG/10ML VIAL IVP SCH ×2 (06:57→17:31)
[2021-10-02] MEDS: INSULIN LISPRO 100 UNITS/ML SUBCUT SCH ×7 (06:58→20:50)
[2021-10-02] MEDS: METFORMIN HCL 500MG TABLET PO SCH ×2 (07:10→17:10)
[2021-10-02] MEDS: ENOXAPARIN 40MG/0.4ML SYR SUBCUT SCH ×3 (09:00→21:00)
[2021-10-02] MEDS: ASPIRIN 81MG TABLET PO SCH (09:38)
[2021-10-02] MEDS: AMLODIPINE 10MG TABLET PO SCH (09:39)
[2021-10-02] MEDS: INSULIN GLARGINE UD 100 UNITS/ML SYR SUBCUT SCH ×2 (09:40→20:50)
[2021-10-02] MEDS: IPRATROPIUM/ALBUTEROL 0.5-3(2.5)MG/3ML NEB HHN SCH ×3 (10:25→21:11)
[2021-10-02] MEDS: HYDROCODONE/ACETAMINOPHEN 10/325MG TABLET PO PRN (15:09)
[2021-10-02] MEDS: CLOTRIMAZOLE 1% VAGINAL CREAM 45GM VG SCH (20:49)
[2021-10-02] MEDS: ATORVASTATIN CALCIUM 40MG TABLET PO SCH (20:49)
[2021-10-03] MEDS: IPRATROPIUM/ALBUTEROL 0.5-3(2.5)MG/3ML NEB HHN SCH ×4 (02:12→21:16)
[2021-10-03] MEDS: METFORMIN HCL 500MG TABLET PO SCH ×2 (06:21→17:10)
[2021-10-03] MEDS: INSULIN LISPRO 100 UNITS/ML SUBCUT SCH ×7 (06:21→21:13)
[2021-10-03] MEDS: BLOOD SUGAR DIAGNOSTIC STRIP TEST SCH ×4 (06:21→21:13)
[2021-10-03] MEDS: FUROSEMIDE 100MG/10ML VIAL IVP SCH (06:22)
[2021-10-03 08:00] VITALS: BP 150/86
[2021-10-03] MEDS: ENOXAPARIN 40MG/0.4ML SYR SUBCUT SCH ×2 (09:00→21:00)
[2021-10-03] MEDS: ASPIRIN 81MG TABLET PO SCH (09:18)
[2021-10-03] MEDS: AMLODIPINE 10MG TABLET PO SCH (09:19)
[2021-10-03] MEDS: INSULIN GLARGINE UD 100 UNITS/ML SYR SUBCUT SCH ×2 (09:48→21:12)
[2021-10-03 11:39] LABS: CHLORIDE 95 mEq/L (98-107)
[2021-10-03 12:00] VITALS: BP 138/90
[2021-10-03] MEDS: FUROSEMIDE 40MG TABLET PO SCH ×2 (13:48→21:12)
[2021-10-03 20:00] VITALS: BP 109/69
[2021-10-03] MEDS: CLOTRIMAZOLE 1% VAGINAL CREAM 45GM VG SCH (21:00)
[2021-10-03] MEDS: ATORVASTATIN CALCIUM 40MG TABLET PO SCH (21:11)
[2021-10-04] MEDS: IPRATROPIUM/ALBUTEROL 0.5-3(2.5)MG/3ML NEB HHN SCH ×4 (01:11→21:03)
[2021-10-04] MEDS: HYDROCODONE/ACETAMINOPHEN 10/325MG TABLET PO PRN (01:57)
[2021-10-04] MEDS: BLOOD SUGAR DIAGNOSTIC STRIP TEST SCH ×4 (06:32→20:24)
[2021-10-04] MEDS: METFORMIN HCL 500MG TABLET PO SCH ×2 (06:33→17:08)
[2021-10-04] MEDS: INSULIN LISPRO 100 UNITS/ML SUBCUT SCH ×7 (06:34→21:43)
[2021-10-04 08:00] VITALS: BP 129/81
[2021-10-04] MEDS: ENOXAPARIN 40MG/0.4ML SYR SUBCUT SCH ×2 (09:00→21:44)
[2021-10-04] MEDS: ASPIRIN 81MG TABLET PO SCH (09:59)
[2021-10-04] MEDS: FUROSEMIDE 40MG TABLET PO SCH ×2 (10:00→17:05)
[2021-10-04] MEDS: AMLODIPINE 10MG TABLET PO SCH (10:00)
[2021-10-04] MEDS: INSULIN GLARGINE UD 100 UNITS/ML SYR SUBCUT SCH (10:05)
[2021-10-04 12:00] VITALS: BP 106/58
[2021-10-04 16:00] VITALS: BP 137/74
[2021-10-04] MEDS ORDERED: LANTUSUD SUBCUT (18:02)
[2021-10-04] MEDS ORDERED: AMLO10TA80 PO (18:02)
[2021-10-04] MEDS ORDERED: POTA20TA82 PO (18:02)
[2021-10-04] MEDS ORDERED: IPRA3AMP9 NEB (18:02)
[2021-10-04] MEDS ORDERED: FURO40TA5 PO (18:02)
[2021-10-04] MEDS ORDERED: INSLIS SUBCUT (18:02)
[2021-10-04] MEDS ORDERED: LIP40 PO (18:02)
[2021-10-04] MEDS ORDERED: METF-414 PO (18:02)
[2021-10-04] MEDS ORDERED: ALBU18HF2 IH (18:02)
[2021-10-04] MEDS ORDERED: FLUT1DIS3 INH (18:02)
[2021-10-04 20:00] VITALS: BP 127/79
[2021-10-04] MEDS: ATORVASTATIN CALCIUM 40MG TABLET PO SCH (21:39)
[2021-10-04] MEDS: CLOTRIMAZOLE 1% VAGINAL CREAM 45GM VG SCH (21:44)
[2021-10-04] MEDS ORDERED: INSULIN GLARGINE UD 100 UNITS/ML SYR SUBCUT SCH (22:00)
[2021-10-05] MEDS: IPRATROPIUM/ALBUTEROL 0.5-3(2.5)MG/3ML NEB HHN SCH ×2 (02:33→07:52)
[2021-10-05] MEDS: INSULIN LISPRO 100 UNITS/ML SUBCUT SCH ×2 (06:40→07:10)
[2021-10-05] MEDS: BLOOD SUGAR DIAGNOSTIC STRIP TEST SCH (06:40)
[2021-10-05] MEDS: METFORMIN HCL 500MG TABLET PO SCH (07:10)
[2021-10-05] MEDS: FUROSEMIDE 40MG TABLET PO SCH (08:41)
[2021-10-05] MEDS: ASPIRIN 81MG TABLET PO SCH (08:41)
[2021-10-05] MEDS: AMLODIPINE 10MG TABLET PO SCH (08:41)
[2021-10-05] MEDS: ENOXAPARIN 40MG/0.4ML SYR SUBCUT SCH (08:43)
== END 2021-10-05 11:12 | disposition home or self-care (01) | DRG 194 ==
LOC: ER 13:40 → 7EST 18:38 → ENRESERV 20:14 → 7WST 09-30 00:44 → 7EST 09-30 00:46
PROVIDERS: ADMIT Internal Medicine; ATTEND Internal Medicine
DX: I11.0 Hypertensive heart disease with heart failure (principal); R65.11 Systemic inflammatory response syndrome (SIRS) of non-infectious origin with acute organ dysfunction; E11.00 Type 2 diabetes mellitus with hyperosmolarity without nonketotic hyperglycemic-hyperosmolar coma (NKHHC); E87.1 Hypo-osmolality and hyponatremia; J44.1 Chronic obstructive pulmonary disease with (acute) exacerbation; B37.3 Candidiasis of vulva and vagina; I50.33 Acute on chronic diastolic (congestive) heart failure; E11.65 Type 2 diabetes mellitus with hyperglycemia; E66.01 Morbid (severe) obesity due to excess calories; E78.00 Pure hypercholesterolemia, unspecified; E78.5 Hyperlipidemia, unspecified; F19.10 Other psychoactive substance abuse, uncomplicated; F14.10 Cocaine abuse, uncomplicated; I16.1 Hypertensive emergency; M48.00 Spinal stenosis, site unspecified; Z20.822 Contact with and (suspected) exposure to COVID-19; Z82.49 Family history of ischemic heart disease and other diseases of the circulatory system; Z83.3 Family history of diabetes mellitus; Z87.891 Personal history of nicotine dependence; Z88.6 Allergy status to analgesic agent; Z88.0 Allergy status to penicillin; Z88.8 Allergy status to other drugs, medicaments and biological substances; Z79.899 Other long term (current) drug therapy; Z79.891 Long term (current) use of opiate analgesic; Z79.1 Long term (current) use of non-steroidal anti-inflammatories (NSAID); Z79.4 Long term (current) use of insulin; Z71.51 Drug abuse counseling and surveillance of drug abuser; Z91.19 Patient's noncompliance with other medical treatment and regimen; Z68.41 Body mass index [BMI] 40.0-44.9, adult
CPT/HCPCS: 36415; 71045; 80048; 80053; 80305; 80320; 81003; 82962; 83036; 83880; 84484; 85025; 85027; 87426; 93005; 93306; 94640; 99285; J1650; J1815; J1940; G0480

== ENCOUNTER 2021-10-16 14:58 | Inpatient (IN) | payer OTHER ==
[~2021-10-16] VITALS: Ht 190.5 cm; Wt 147.9 kg
[~2021-10-16 14:58] MED LIST changes: -AMLO10TA80 MT; -CEPH250C2 MT; -FURO-151 MT; -FURO-151 PO; +FURO40TA5 PO; -GLIP5TAB12 PO; -HYDR-4135 PO; -HYDR100T26 PO; -INSU100I28 SQ; +IPRA3AMP9 NEB; -LOSA100T3 PO; -LOSA100T32 MT; -LOSA50TA41 MT; -POTA20TA82 MT; -SULF1TAB48 MT
[2021-10-16] MEDS ORDERED: FUROSEMIDE 40MG/4ML VIAL IVP ONE (16:30)
[2021-10-16] MEDS ORDERED: ACETAMINOPHEN 325MG TABLET PO ONE (16:30)
[2021-10-16 16:50] LABS: BASOPHILS % 0.4 % (0.0-2.0); EOSINOPHILS % 0.3 % (0.0-5.0); HEMATOCRIT. 42.6 % (36.0-48.0); HEMOGLOBIN. 14.2 g/dL (12.0-16.0); LYMPHOCYTES % 26.8 % (20.0-50.0); MEAN CORPUSCULAR HEMOGLOBIN 30.9 pg (28.0-32.0); MEAN CORPUSCULAR VOLUME 92.7 fL (81.0-99.0); MEAN PLATELET VOLUME 9.2 fl (7.4-10.4); MONOCYTES % 5.5 % (2.0-8.0); PLATELET 271 x1000/uL (130-400); RED BLOOD CELL COUNT 4.59 mill/uL (4.2-5.4); RED CELL DISTRIBUTION WIDTH 14.2 % (11.6-14.6)
[2021-10-16 16:56] LABS: CHLORIDE 104 mEq/L (98-107)
[2021-10-16] MEDS ORDERED: IPRATROPIUM/ALBUTEROL 0.5-3(2.5)MG/3ML NEB HHN ONE ×2 (17:15→21:45)
[2021-10-16] MEDS ORDERED: PREDNISONE 20MG TABLET PO ONE (21:45)
[2021-10-17] MEDS ORDERED: MAGNESIUM/ALUMINUM HYDROXIDE/SIMETHICONE 30ML UDC PO PRN (01:15)
[2021-10-17] MEDS ORDERED: DOCUSATE SODIUM 100MG CAPSULE PO PRN (01:15)
[2021-10-17] MEDS ORDERED: ACETAMINOPHEN 325MG TABLET PO PRN (01:15)
[2021-10-17] MEDS ORDERED: ONDANSETRON HCL 4MG/2ML INJ IV PRN (01:15)
[2021-10-17] MEDS ORDERED: DEXTROSE 50% WATER 50ML SYRINGE IV PRN (01:30)
[2021-10-17 01:50] VITALS: BP 194/117
[2021-10-17] MEDS ORDERED: NALOXONE HCL 0.4MG/ML VIAL IV PRN (02:15)
[2021-10-17] MEDS: CLONIDINE 0.1MG TABLET PO PRN ×2 (02:17→17:07)
[2021-10-17] MEDS: HYDROCODONE/ACETAMINOPHEN 5/325MG TABLET PO PRN ×3 (02:38→17:07)
[2021-10-17 02:53] LABS: CLARITY URINE CLEAR (CLEAR); COLOR URINE YELLOW (YELLOW); KETONES URINE NEGATIVE (NEGATIVE); LEUKOCYTE ESTERASE URINE NEGATIVE (NEGATIVE); NITRITE URINE NEGATIVE (NEGATIVE); OCCULT BLOOD URINE NEGATIVE (NEGATIVE); PH URINE 6.5 (4.5-8.0); PROTEIN URINE NEGATIVE (NEGATIVE); SPECIFIC GRAVITY URINE 1.027 (1.005-1.030); UROBILINOGEN URINE 0.2 E.U./dL (0.2-1.0)
[2021-10-17 03:03] LABS: *AMPHETAMINES SCREEN URINE NEGATIVE (NEGATIVE); *BARBITURATES SCREEN URINE NEGATIVE (NEGATIVE); *BENZODIAZEPINES SCREEN URINE NEGATIVE (NEGATIVE); *COCAINE SCREEN URINE PRESUMTIVE POSITIVE (NEGATIVE); CANNABINOID URINE SCREEN NEGATIVE (NEGATIVE); METHADONE URINE SCREEN NEGATIVE (NEGATIVE); OPIATES URINE SCREEN NEGATIVE (NEGATIVE)
[2021-10-17 03:04] LABS: PHENCYCLIDINE URINE SCREEN NEGATIVE (NEGATIVE)
[2021-10-17 04:00] VITALS: BP 173/92
[2021-10-17] MEDS: METHYLPREDNISOLONE SOD SUCC 40 MG/ML VIAL IV SCH ×3 (05:54→21:20)
[2021-10-17] MEDS: INSULIN LISPRO 100 UNITS/ML SUBCUT SCH ×4 (05:55→21:33)
[2021-10-17] MEDS: BLOOD SUGAR DIAGNOSTIC STRIP TEST SCH ×4 (05:55→21:00)
[2021-10-17 07:24] LABS: CHLORIDE 89 mEq/L (98-107)
[2021-10-17 07:31] LABS: LDL CHOLESTEROL 105 mg/dL (5-100)
[2021-10-17 07:32] LABS: CREATINE KINASE 115 IU/L (26-192)
[2021-10-17 07:33] LABS: HDL CHOLESTEROL 56 mg/dL (40-59)
[2021-10-17 07:35] LABS: CREATINE KINASE MB FRACTION 1.4 ng/mL (0.5-3.6)
[2021-10-17 08:00] VITALS: BP 185/110
[2021-10-17] MEDS ORDERED: INSULIN GLARGINE UD 100 UNITS/ML SYR SUBCUT ONE (08:30)
[2021-10-17] MEDS ORDERED: INSULIN LISPRO 100 UNITS/ML SUBCUT SCH (08:40)
[2021-10-17] MEDS: FAMOTIDINE 20MG TABLET PO SCH ×2 (08:59→21:23)
[2021-10-17] MEDS: ASPIRIN 81MG EC TABLET PO SCH (08:59)
[2021-10-17] MEDS: ENOXAPARIN 30MG/0.3ML SYR SUBCUT SCH ×3 (09:00→21:23)
[2021-10-17 09:04] LABS: BETA HYDROXYBUTYRATE 0.8 mMol/L (0.0-0.3)
[2021-10-17] MEDS: SPIRONOLACTONE 25MG TABLET PO SCH (11:06)
[2021-10-17] MEDS: FUROSEMIDE 40MG/4ML VIAL IV SCH (11:06)
[2021-10-17] MEDS: INSULIN GLARGINE UD 100 UNITS/ML SYR SUBCUT SCH ×2 (11:25→21:28)
[2021-10-17 16:00] VITALS: BP 164/95
[2021-10-17 17:16] LABS: CREATINE KINASE 113 IU/L (26-192)
[2021-10-17 17:17] LABS: CREATINE KINASE MB FRACTION 1.7 ng/mL (0.5-3.6)
[2021-10-17] MEDS: IPRATROPIUM/ALBUTEROL 0.5-3(2.5)MG/3ML NEB NEB PRN (17:24)
[2021-10-17] MEDS ORDERED: INSULIN LISPRO 100 UNITS/ML SUBCUT NR (18:30)
[2021-10-17 20:00] VITALS: BP 173/95
[2021-10-18] VITALS: BP 120/93
[2021-10-18 04:00] VITALS: BP 143/84
[2021-10-18] MEDS: METHYLPREDNISOLONE SOD SUCC 40 MG/ML VIAL IV SCH ×3 (05:00→21:27)
[2021-10-18] MEDS: BLOOD SUGAR DIAGNOSTIC STRIP TEST SCH ×4 (05:00→19:54)
[2021-10-18] MEDS: INSULIN LISPRO 100 UNITS/ML SUBCUT SCH ×4 (05:17→21:26)
[2021-10-18] MEDS ORDERED: LIDOCAINE HCL 1% 10 MG/ML 10ML VIAL ONE (07:21)
[2021-10-18 08:00] VITALS: BP 146/94
[2021-10-18] MEDS: ENOXAPARIN 30MG/0.3ML SYR SUBCUT SCH ×2 (09:00→20:50)
[2021-10-18] MEDS ORDERED: IOHEXOL-350 100 ML BOTTLE ONE (09:45)
[2021-10-18] MEDS: SPIRONOLACTONE 25MG TABLET PO SCH (10:11)
[2021-10-18] MEDS: FAMOTIDINE 20MG TABLET PO SCH ×2 (10:12→21:24)
[2021-10-18] MEDS: FUROSEMIDE 40MG/4ML VIAL IV SCH (10:12)
[2021-10-18] MEDS: ASPIRIN 81MG EC TABLET PO SCH (10:12)
[2021-10-18] MEDS: INSULIN GLARGINE UD 100 UNITS/ML SYR SUBCUT SCH ×2 (10:15→21:26)
[2021-10-18] MEDS: IPRATROPIUM/ALBUTEROL 0.5-3(2.5)MG/3ML NEB NEB PRN ×4 (11:37→23:53)
[2021-10-18 12:00] VITALS: BP 162/103
[2021-10-18] MEDS: CLONIDINE 0.1MG TABLET PO PRN (15:32)
[2021-10-18 16:00] VITALS: BP 153/92
[2021-10-18] MEDS ORDERED: INSULIN LISPRO 100 UNITS/ML SUBCUT NR (17:30)
[2021-10-18] MEDS: HYDROCODONE/ACETAMINOPHEN 5/325MG TABLET PO PRN (17:55)
[2021-10-18 20:00] VITALS: BP 148/96
[2021-10-18] MEDS ORDERED: ENOXAPARIN 40MG/0.4ML SYR SUBCUT SCH (21:00)
[2021-10-19] VITALS: BP 161/79
[2021-10-19 04:00] VITALS: BP 164/95
[2021-10-19] MEDS: METHYLPREDNISOLONE SOD SUCC 40 MG/ML VIAL IV SCH (05:42)
[2021-10-19] MEDS: INSULIN LISPRO 100 UNITS/ML SUBCUT SCH (05:48)
[2021-10-19] MEDS: BLOOD SUGAR DIAGNOSTIC STRIP TEST SCH (06:10)
[2021-10-19 06:43] LABS: BASOPHILS % 0.1 % (0.0-2.0); HEMATOCRIT. 40.7 % (36.0-48.0); HEMOGLOBIN. 13.7 g/dL (12.0-16.0); LYMPHOCYTES % 10.2 % (20.0-50.0); MEAN CORPUSCULAR HEMOGLOBIN 31.1 pg (28.0-32.0); MEAN CORPUSCULAR VOLUME 92.2 fL (81.0-99.0); MEAN PLATELET VOLUME 10.2 fl (7.4-10.4); MONOCYTES % 4.9 % (2.0-8.0); NEUTROPHILS % 84.8 % (40.0-76.0); PLATELET 227 x1000/uL (130-400); RED BLOOD CELL COUNT 4.41 mill/uL (4.2-5.4)
[2021-10-19 07:02] LABS: CHLORIDE 90 mEq/L (98-107)
[2021-10-19] MEDS: ASPIRIN 81MG EC TABLET PO SCH (08:44)
[2021-10-19] MEDS: FAMOTIDINE 20MG TABLET PO SCH (08:44)
[2021-10-19] MEDS: FUROSEMIDE 40MG/4ML VIAL IV SCH (08:45)
[2021-10-19] MEDS: SPIRONOLACTONE 25MG TABLET PO SCH (08:45)
[2021-10-19] MEDS: ENOXAPARIN 30MG/0.3ML SYR SUBCUT SCH (08:46)
[2021-10-19] MEDS: IPRATROPIUM/ALBUTEROL 0.5-3(2.5)MG/3ML NEB NEB PRN (09:13)
[2021-10-19] MEDS: INSULIN GLARGINE UD 100 UNITS/ML SYR SUBCUT SCH (10:31)
[2021-10-23] MEDS ORDERED: INSLIS SUBCUT (12:55)
[2021-10-23] MEDS ORDERED: FLUT1DIS3 INH (12:55)
[2021-10-23] MEDS ORDERED: LANTUSUD SUBCUT (12:55)
[2021-10-23] MEDS ORDERED: ALBU18HF2 IH (12:55)
[2021-10-23] MEDS ORDERED: LIP40 PO (12:55)
[2021-10-23] MEDS ORDERED: FURO40TA5 MT (12:55)
[2021-10-23] MEDS ORDERED: METF-414 PO (12:55)
[2021-10-23] MEDS ORDERED: AMLO10TA80 PO (12:55)
[2021-10-23] MEDS ORDERED: POTA20TA82 PO (12:55)
== END 2021-10-19 11:45 | disposition left against medical advice (07) | DRG 145 ==
LOC: ER 15:05 → 8WST 21:40 → EDBEDREQTM 21:45 → EDBEDREQ 21:45 → ENRESERV 21:49
PROVIDERS: ADMIT Internal Medicine; ATTEND Internal Medicine
PROC: B54MZZA Ultrasonography of Right Upper Extremity Veins, Guidance (ICD-10-PCS; principal; 2021-10-18)
PROC: 05HY33Z Insertion of Infusion Device into Upper Vein, Percutaneous Approach (ICD-10-PCS; 2021-10-18)
DX: J68.0 Bronchitis and pneumonitis due to chemicals, gases, fumes and vapors (principal); J96.00 Acute respiratory failure, unspecified whether with hypoxia or hypercapnia; I50.33 Acute on chronic diastolic (congestive) heart failure; I11.0 Hypertensive heart disease with heart failure; E11.65 Type 2 diabetes mellitus with hyperglycemia; E78.5 Hyperlipidemia, unspecified; F14.10 Cocaine abuse, uncomplicated; F17.210 Nicotine dependence, cigarettes, uncomplicated; Z20.822 Contact with and (suspected) exposure to COVID-19; I71.9 Aortic aneurysm of unspecified site, without rupture; Z59.00 Homelessness unspecified; Z82.49 Family history of ischemic heart disease and other diseases of the circulatory system; Z83.3 Family history of diabetes mellitus; Z79.51 Long term (current) use of inhaled steroids; Z79.82 Long term (current) use of aspirin; Z88.0 Allergy status to penicillin; Z88.8 Allergy status to other drugs, medicaments and biological substances; Z79.84 Long term (current) use of oral hypoglycemic drugs; Z79.4 Long term (current) use of insulin; Z79.899 Other long term (current) drug therapy; Z71.51 Drug abuse counseling and surveillance of drug abuser; Z71.6 Tobacco abuse counseling; F19.90 Other psychoactive substance use, unspecified, uncomplicated; Z87.09 Personal history of other diseases of the respiratory system
CPT/HCPCS: 36415; 71045; 71275; 74174; 76937; 80048; 80053; 80061; 80305; 81003; 82010; 82550; 82553; 82962; 83036; 83880; 84443; 84484; 85025; 87426; 93005; 93970; 94640; 99285; C1725; J1650; J1815; J1940; J2920; J3490; J7040; J7512; Q9967

== ENCOUNTER 2021-11-15 13:50 | Inpatient (IN) | payer OTHER ==
[~2021-11-15] VITALS: Ht 190.5 cm; Wt 141.5 kg
[~2021-11-15 13:50] MED LIST changes: +FURO40TA5 MT; -FURO40TA5 PO; -FURO80TA87 MT; -HYDR-4009 MT; -IPRA3AMP9 HHN
[2021-11-15] MEDS ORDERED: ASPIRIN 81MG TABLET PO ONE (14:30)
[2021-11-15] MEDS ORDERED: MORPHINE SULFATE 4 MG/ML CPJ (NOT FOR IM USE) IV ONE (14:30)
[2021-11-15 15:14] LABS: BASOPHILS % 0.4 % (0.0-2.0); EOSINOPHILS % 0.3 % (0.0-5.0); HEMATOCRIT. 44.3 % (36.0-48.0); HEMOGLOBIN. 14.7 g/dL (12.0-16.0); LYMPHOCYTES % 18.5 % (20.0-50.0); MEAN CORPUSCULAR HEMOGLOBIN 30.5 pg (28.0-32.0); MEAN CORPUSCULAR VOLUME 91.7 fL (81.0-99.0); MEAN PLATELET VOLUME 9.9 fl (7.4-10.4); NEUTROPHILS % 69.8 % (40.0-76.0); PLATELET 252 x1000/uL (130-400); RED BLOOD CELL COUNT 4.83 mill/uL (4.2-5.4); RED CELL DISTRIBUTION WIDTH 14.6 % (11.6-14.6)
[2021-11-15 15:16] LABS: CHLORIDE 96 mEq/L (98-107)
[2021-11-15] MEDS ORDERED: ALBUTEROL (0.083%) 2.5MG/3ML NEB HHN ONE (16:00)
[2021-11-15] MEDS ORDERED: INSULIN REGULAR (HUMULIN R) 300UNITS/3ML VIAL IV ONE ×2 (17:15→20:45)
[2021-11-15] MEDS ORDERED: MORPHINE SULFATE 4 MG/ML CPJ (NOT FOR IM USE) IV NR (19:30)
[2021-11-15] MEDS ORDERED: AMLODIPINE 10MG TABLET PO ONE (20:45)
[2021-11-15] MEDS: ERYTHROMYCIN BASE 0.5% OPHTH OINT 3.5GM LEFTEYE SCH (20:49)
[2021-11-15] MEDS ORDERED: PETROLATUM,WHITE OPHTH OINT 3.5GM BOTHEYE SCH (21:00)
[2021-11-16] MEDS ORDERED: CLONIDINE 0.1MG TABLET PO PRN (01:00)
[2021-11-16] MEDS ORDERED: DEXTROSE 50% WATER 50ML SYRINGE IV PRN (01:00)
[2021-11-16] MEDS ORDERED: NALOXONE HCL 0.4MG/ML VIAL IV PRN (01:00)
[2021-11-16] MEDS ORDERED: INSULIN LISPRO 100 UNITS/ML SUBCUT NR ×2 (01:00→23:00)
[2021-11-16] MEDS: MORPHINE SULFATE 2 MG/ML CPJ (NOT FOR IM USE) IV PRN ×2 (01:36→06:31)
[2021-11-16] MEDS: ERYTHROMYCIN BASE 0.5% OPHTH OINT 3.5GM LEFTEYE SCH ×3 (04:12→21:49)
[2021-11-16] MEDS: INSULIN LISPRO (MEDIUM DOSE) 100 UNITS/ML SUBCUT SCH ×4 (06:30→21:00)
[2021-11-16] MEDS: BLOOD SUGAR DIAGNOSTIC STRIP TEST SCH ×4 (07:00→21:00)
[2021-11-16] MEDS ORDERED: ONDANSETRON HCL 4MG/2ML INJ IV PRN (08:30)
[2021-11-16] MEDS ORDERED: HYDROCODONE/ACETAMINOPHEN 10/325MG TABLET PO PRN (08:30)
[2021-11-16] MEDS ORDERED: FUROSEMIDE 100MG/10ML VIAL IVP SCH (09:00)
[2021-11-16] MEDS ORDERED: INSULIN GLARGINE UD 100 UNITS/ML SYR SUBCUT SCH ×2 (10:00→22:00)
[2021-11-16] MEDS: AMLODIPINE 10MG TABLET PO SCH (10:42)
[2021-11-16 12:00] VITALS: BP 127/67
[2021-11-16] MEDS: HYDROCODONE/ACETAMINOPHEN 10/325MG TABLET PO PRN ×2 (13:26→17:46)
[2021-11-16 14:56] VITALS: BP 127/67
[2021-11-16 16:00] VITALS: BP 124/79
[2021-11-16] MEDS ORDERED: FUROSEMIDE 40MG/4ML VIAL IVP SCH (16:41)
[2021-11-16] MEDS: FUROSEMIDE 40MG/4ML VIAL IVP SCH (17:25)
[2021-11-16] MEDS: INSULIN LISPRO 100 UNITS/ML SUBCUT SCH (17:47)
[2021-11-16 18:00] VITALS: BP 124/79
[2021-11-16 18:32] LABS: *BENZODIAZEPINES SCREEN URINE NEGATIVE (NEGATIVE); *COCAINE SCREEN URINE NEGATIVE (NEGATIVE); METHADONE URINE SCREEN NEGATIVE (NEGATIVE)
[2021-11-16 18:34] LABS: *AMPHETAMINES SCREEN URINE NEGATIVE (NEGATIVE); *BARBITURATES SCREEN URINE NEGATIVE (NEGATIVE); CANNABINOID URINE SCREEN NEGATIVE (NEGATIVE); OPIATES URINE SCREEN PRESUMTIVE POSITIVE (NEGATIVE); PHENCYCLIDINE URINE SCREEN NEGATIVE (NEGATIVE)
[2021-11-16 20:00] VITALS: BP 130/89
[2021-11-16] MEDS: IPRATROPIUM/ALBUTEROL 0.5-3(2.5)MG/3ML NEB HHN SCH (21:05)
[2021-11-16] MEDS: INSULIN GLARGINE UD 100 UNITS/ML SYR SUBCUT SCH (22:32)
[2021-11-17] VITALS: BP 106/55
[2021-11-17] MEDS: IPRATROPIUM/ALBUTEROL 0.5-3(2.5)MG/3ML NEB HHN SCH ×5 (00:59→16:00)
[2021-11-17] MEDS: ERYTHROMYCIN BASE 0.5% OPHTH OINT 3.5GM LEFTEYE SCH ×3 (02:57→21:09)
[2021-11-17] MEDS: HYDROCODONE/ACETAMINOPHEN 10/325MG TABLET PO PRN ×4 (02:57→21:54)
[2021-11-17] MEDS: INSULIN LISPRO 100 UNITS/ML SUBCUT SCH ×3 (06:52→17:11)
[2021-11-17] MEDS: INSULIN LISPRO (MEDIUM DOSE) 100 UNITS/ML SUBCUT SCH ×4 (06:52→21:00)
[2021-11-17] MEDS: BLOOD SUGAR DIAGNOSTIC STRIP TEST SCH ×4 (06:53→21:08)
[2021-11-17] MEDS: FUROSEMIDE 40MG/4ML VIAL IVP SCH ×2 (06:53→17:09)
[2021-11-17] MEDS: METFORMIN HCL 500MG TABLET PO SCH ×2 (07:10→17:10)
[2021-11-17 07:42] LABS: CHLORIDE 95 mEq/L (98-107)
[2021-11-17 08:00] VITALS: BP 105/60
[2021-11-17] MEDS: AMLODIPINE 10MG TABLET PO SCH (09:00)
[2021-11-17] MEDS: INSULIN GLARGINE UD 100 UNITS/ML SYR SUBCUT SCH ×2 (09:45→21:57)
[2021-11-17 12:00] VITALS: BP 112/67
[2021-11-17 16:00] VITALS: BP 125/74
[2021-11-17] MEDS: POLYVINYL ALCOHOL OPHTH DROPS 15ML LEFTEYE SCH ×2 (17:09→21:53)
[2021-11-17 20:00] VITALS: BP 131/83
[2021-11-17] MEDS ORDERED: INSULIN LISPRO 100 UNITS/ML SUBCUT NR (20:30)
[2021-11-17] MEDS: DOCUSATE SODIUM 250MG CAPSULE PO SCH (21:19)
[2021-11-18] VITALS: BP 102/60
[2021-11-18] MEDS: IPRATROPIUM/ALBUTEROL 0.5-3(2.5)MG/3ML NEB HHN SCH ×2 (00:30→04:30)
[2021-11-18 04:00] VITALS: BP 150/92
[2021-11-18] MEDS: ERYTHROMYCIN BASE 0.5% OPHTH OINT 3.5GM LEFTEYE SCH ×2 (04:10→12:00)
[2021-11-18] MEDS: HYDROCODONE/ACETAMINOPHEN 10/325MG TABLET PO PRN (04:12)
[2021-11-18] MEDS: BLOOD SUGAR DIAGNOSTIC STRIP TEST SCH ×2 (06:22→11:40)
[2021-11-18] MEDS: INSULIN LISPRO 100 UNITS/ML SUBCUT SCH (06:55)
[2021-11-18] MEDS: INSULIN LISPRO (MEDIUM DOSE) 100 UNITS/ML SUBCUT SCH ×2 (06:56→13:23)
[2021-11-18] MEDS: METFORMIN HCL 500MG TABLET PO SCH (07:10)
[2021-11-18 07:58] LABS: CHLORIDE 94 mEq/L (98-107)
[2021-11-18 08:00] VITALS: BP 122/60
[2021-11-18] MEDS ORDERED: FURO40TA5 MT (09:47)
[2021-11-18] MEDS ORDERED: ALBU18HF2 IH (09:47)
[2021-11-18] MEDS ORDERED: FLUT1DIS3 INH (09:47)
[2021-11-18] MEDS ORDERED: POTA20TA82 PO (09:47)
[2021-11-18] MEDS ORDERED: INSLIS SUBCUT (09:47)
[2021-11-18] MEDS ORDERED: METF-414 PO (09:47)
[2021-11-18] MEDS ORDERED: AMLO10TA80 PO (09:47)
[2021-11-18] MEDS ORDERED: LANTUSUD SUBCUT (09:47)
[2021-11-18] MEDS ORDERED: LIP40 PO (09:47)
[2021-11-18] MEDS ORDERED: IPRA3AMP9 NEB (09:47)
[2021-11-18] MEDS: DOCUSATE SODIUM 250MG CAPSULE PO SCH (10:37)
[2021-11-18] MEDS: FUROSEMIDE 40MG/4ML VIAL IVP SCH (10:37)
[2021-11-18] MEDS: AMLODIPINE 10MG TABLET PO SCH (10:37)
[2021-11-18] MEDS: POLYVINYL ALCOHOL OPHTH DROPS 15ML LEFTEYE SCH ×2 (10:37→13:00)
[2021-11-18] MEDS ORDERED: INSULIN GLARGINE UD 100 UNITS/ML SYR SUBCUT SCH (11:30)
[2021-11-18] MEDS ORDERED: INSULIN LISPRO 100 UNITS/ML SUBCUT SCH (11:40)
[2021-11-18 12:36] VITALS: BP 122/60
== END 2021-11-18 17:20 | disposition home or self-care (01) | DRG 194 ==
LOC: ER 14:30 → MICUSO 22:21 → 7EST 11-16 12:12
PROVIDERS: ADMIT Internal Medicine; ATTEND Internal Medicine
DX: I11.0 Hypertensive heart disease with heart failure (principal); E87.8 Other disorders of electrolyte and fluid balance, not elsewhere classified; E87.1 Hypo-osmolality and hyponatremia; I50.33 Acute on chronic diastolic (congestive) heart failure; E11.65 Type 2 diabetes mellitus with hyperglycemia; J44.9 Chronic obstructive pulmonary disease, unspecified; Z20.822 Contact with and (suspected) exposure to COVID-19; E66.9 Obesity, unspecified; R07.9 Chest pain, unspecified; M48.00 Spinal stenosis, site unspecified; F14.90 Cocaine use, unspecified, uncomplicated; Z88.0 Allergy status to penicillin; Z88.8 Allergy status to other drugs, medicaments and biological substances; Z68.39 Body mass index [BMI] 39.0-39.9, adult; Z91.19 Patient's noncompliance with other medical treatment and regimen
CPT/HCPCS: 36415; 71045; 80048; 80053; 80305; 82962; 83880; 84484; 85025; 87426; 93005; 94640; 99285; C1893; J1815; J1940; J2270

== ENCOUNTER 2021-11-22 13:30 | Emergency (ER) | payer OTHER ==
[~2021-11-22] VITALS: Ht 172.7 cm; Wt 114.0 kg
[2021-11-22] MEDS ORDERED: IPRATROPIUM BROMIDE (0.02%) 0.5MG/2.5ML NEB HHN STA (17:12)
[2021-11-22] MEDS ORDERED: ALBUTEROL (0.083%) 2.5MG/3ML NEB HHN STA (17:12)
[2021-11-22 18:13] VITALS: BP 131/85
[2021-11-22] MEDS ORDERED: ALBU2.5V13 NEB (18:48)
== END 2021-11-22 21:05 | disposition home or self-care (01) ==
LOC: ER 13:33
DX: R06.02 Shortness of breath (principal); J45.909 Unspecified asthma, uncomplicated; I11.0 Hypertensive heart disease with heart failure; I50.9 Heart failure, unspecified; J44.9 Chronic obstructive pulmonary disease, unspecified; E11.9 Type 2 diabetes mellitus without complications; Z79.899 Other long term (current) drug therapy
CPT/HCPCS: 93005; 94640; 99283

== ENCOUNTER 2021-12-02 13:13 | Inpatient (IN) | payer OTHER ==
[~2021-12-02] VITALS: Ht 182.9 cm; Wt 149.7 kg
[~2021-12-02 13:13] MED LIST changes: +ALBU2.5V13 NEB
[2021-12-02 14:03] LABS: BASOPHILS % 0.4 % (0.0-2.0); EOSINOPHILS % 0.1 % (0.0-5.0); HEMATOCRIT. 43.8 % (36.0-48.0); HEMOGLOBIN. 14.5 g/dL (12.0-16.0); LYMPHOCYTES % 16.8 % (20.0-50.0); MEAN CORPUSCULAR VOLUME 93.6 fL (81.0-99.0); MEAN PLATELET VOLUME 9.5 fl (7.4-10.4); NEUTROPHILS % 74.7 % (40.0-76.0); PLATELET 248 x1000/uL (130-400); RED BLOOD CELL COUNT 4.68 mill/uL (4.2-5.4); RED CELL DISTRIBUTION WIDTH 14.3 % (11.6-14.6)
[2021-12-02 14:04] LABS: CHLORIDE 97 mEq/L (98-107)
[2021-12-02] MEDS ORDERED: SODIUM CHLORIDE 0.9% 1,000 ML IV ONE (21:30)
[2021-12-03] MEDS ORDERED: INSULIN REGULAR (HUMULIN R) 300UNITS/3ML VIAL SUBCUT ONE (00:15)
[2021-12-03] MEDS ORDERED: ACETAMINOPHEN 325MG TABLET PO ONE (00:15)
[2021-12-03] MEDS ORDERED: INSULIN LISPRO (HUMALOG) 300UNITS/3ML VIAL SUBCUT SCH (08:15)
[2021-12-03] MEDS ORDERED: INSULIN GLARGINE UD 100 UNITS/ML SYR SUBCUT SCH ×2 (08:15→22:00)
[2021-12-03] MEDS ORDERED: INSULIN LISPRO 100 UNITS/ML SUBCUT SCH (08:30)
[2021-12-03] MEDS: IPRATROPIUM/ALBUTEROL 0.5-3(2.5)MG/3ML NEB HHN PRN ×3 (09:01→20:04)
[2021-12-03 10:30] VITALS: BP 155/94
[2021-12-03 12:00] VITALS: BP 157/102
[2021-12-03] MEDS ORDERED: METOLAZONE 2.5MG TABLET PO SCH (12:00)
[2021-12-03] MEDS ORDERED: IPRATROPIUM/ALBUTEROL 0.5-3(2.5)MG/3ML NEB HHN PRN (12:00)
[2021-12-03] MEDS ORDERED: DEXTROSE 50% WATER 50ML SYRINGE IV PRN (12:00)
[2021-12-03] MEDS ORDERED: ACETAMINOPHEN 325MG TABLET PO PRN (12:00)
[2021-12-03] MEDS ORDERED: ONDANSETRON HCL 4MG/2ML INJ IV PRN (12:00)
[2021-12-03] MEDS: INSULIN LISPRO 100 UNITS/ML SUBCUT SCH ×5 (12:50→21:32)
[2021-12-03] MEDS: AMLODIPINE 5MG TABLET PO SCH (12:56)
[2021-12-03] MEDS: BLOOD SUGAR DIAGNOSTIC STRIP TEST SCH ×3 (12:57→21:30)
[2021-12-03] MEDS: FUROSEMIDE 100MG/10ML VIAL IVP SCH ×2 (13:16→18:48)
[2021-12-03 15:23] VITALS: BP 155/94
[2021-12-03 16:00] VITALS: BP 112/64
[2021-12-03 20:00] VITALS: BP_SYST 111; BP_SYST 162; BP_DIAS 72; BP_DIAS 82
[2021-12-03] MEDS: ATORVASTATIN CALCIUM 40MG TABLET PO SCH (21:33)
[2021-12-04 04:00] VITALS: BP 94/60
[2021-12-04] MEDS: FUROSEMIDE 100MG/10ML VIAL IVP SCH ×2 (07:06→17:53)
[2021-12-04] MEDS: BLOOD SUGAR DIAGNOSTIC STRIP TEST SCH ×4 (07:20→21:00)
[2021-12-04 08:00] VITALS: BP 121/86
[2021-12-04] MEDS: IPRATROPIUM/ALBUTEROL 0.5-3(2.5)MG/3ML NEB HHN PRN ×3 (08:06→21:19)
[2021-12-04] MEDS: INSULIN LISPRO 100 UNITS/ML SUBCUT SCH ×7 (09:16→22:01)
[2021-12-04] MEDS: AMLODIPINE 5MG TABLET PO SCH (09:18)
[2021-12-04] MEDS: HYDROCODONE/ACETAMINOPHEN 10/325MG TABLET PO PRN ×2 (10:39→18:00)
[2021-12-04 12:00] VITALS: BP 117/80
[2021-12-04] MEDS: INSULIN GLARGINE UD 100 UNITS/ML SYR SUBCUT SCH ×2 (12:19→22:02)
[2021-12-04] MEDS: KETOROLAC 30MG/ML VIAL IV PRN ×2 (12:47→18:43)
[2021-12-04 16:00] VITALS: BP 110/60
[2021-12-04 20:00] VITALS: BP 111/72
[2021-12-04] MEDS: ATORVASTATIN CALCIUM 40MG TABLET PO SCH (21:59)
[2021-12-05 04:00] VITALS: BP 93/62
[2021-12-05] MEDS: IPRATROPIUM/ALBUTEROL 0.5-3(2.5)MG/3ML NEB HHN PRN ×2 (04:35→20:23)
[2021-12-05] MEDS: FUROSEMIDE 100MG/10ML VIAL IVP SCH ×2 (06:36→17:49)
[2021-12-05 08:00] VITALS: BP 94/47
[2021-12-05] MEDS: BLOOD SUGAR DIAGNOSTIC STRIP TEST SCH ×4 (08:00→21:02)
[2021-12-05] MEDS: AMLODIPINE 5MG TABLET PO SCH (09:00)
[2021-12-05] MEDS: INSULIN LISPRO 100 UNITS/ML SUBCUT SCH ×7 (09:26→21:20)
[2021-12-05] MEDS: INSULIN GLARGINE UD 100 UNITS/ML SYR SUBCUT SCH ×2 (11:51→21:21)
[2021-12-05 12:00] VITALS: BP 89/57
[2021-12-05 16:00] VITALS: BP 97/60
[2021-12-05] MEDS: HYDROCODONE/ACETAMINOPHEN 10/325MG TABLET PO PRN (18:43)
[2021-12-05 20:00] VITALS: BP 148/67
[2021-12-05] MEDS: ATORVASTATIN CALCIUM 40MG TABLET PO SCH (20:51)
[2021-12-05] MEDS ORDERED: KETOROLAC 15MG/ML VIAL IV PRN (21:00)
[2021-12-05] MEDS ORDERED: KETOROLAC 30MG/ML VIAL IV PRN (21:41)
[2021-12-06] VITALS: BP 110/70
[2021-12-06] MEDS: IPRATROPIUM/ALBUTEROL 0.5-3(2.5)MG/3ML NEB HHN PRN ×5 (00:09→20:18)
[2021-12-06 04:00] VITALS: BP 102/64
[2021-12-06] MEDS: FUROSEMIDE 100MG/10ML VIAL IVP SCH ×2 (06:25→16:23)
[2021-12-06] MEDS: BLOOD SUGAR DIAGNOSTIC STRIP TEST SCH ×4 (06:25→21:00)
[2021-12-06] MEDS: INSULIN LISPRO 100 UNITS/ML SUBCUT SCH ×7 (06:34→21:24)
[2021-12-06] MEDS: AMLODIPINE 5MG TABLET PO SCH (09:00)
[2021-12-06] MEDS ORDERED: POTA20TA82 PO (10:36)
[2021-12-06] MEDS ORDERED: METF-414 PO (10:36)
[2021-12-06] MEDS ORDERED: LIP40 PO (10:36)
[2021-12-06] MEDS ORDERED: ALBU18HF2 IH (10:36)
[2021-12-06] MEDS ORDERED: INSLIS SUBCUT (10:36)
[2021-12-06] MEDS ORDERED: FLUT1DIS3 INH (10:36)
[2021-12-06] MEDS ORDERED: IPRA3AMP9 NEB (10:36)
[2021-12-06] MEDS ORDERED: LANTUSUD SUBCUT (10:36)
[2021-12-06] MEDS ORDERED: FURO80TA87 MT (10:36)
[2021-12-06] MEDS ORDERED: AMLO5TAB88 MT (10:36)
[2021-12-06] MEDS ORDERED: ONDANSETRON HCL 4MG TABLET PO PRN (11:00)
[2021-12-06] MEDS ORDERED: MAGNESIUM/ALUMINUM HYDROXIDE/SIMETHICONE 30ML UDC PO PRN (11:00)
[2021-12-06 12:00] VITALS: BP 98/57
[2021-12-06 16:00] VITALS: BP 101/55
[2021-12-06] MEDS: ATORVASTATIN CALCIUM 40MG TABLET PO SCH (20:42)
[2021-12-06] MEDS ORDERED: FAMOTIDINE 20MG TABLET PO SCH (21:00)
[2021-12-06] MEDS ORDERED: THROAT LOZENGES-BENZOCAINE/MENTH/CETYLPYRD CL LOZENGES MM PRN (21:15)
[2021-12-06] MEDS: INSULIN GLARGINE UD 100 UNITS/ML SYR SUBCUT SCH (21:25)
[2021-12-07] MEDS: IPRATROPIUM/ALBUTEROL 0.5-3(2.5)MG/3ML NEB HHN PRN ×2 (01:53→09:20)
[2021-12-07 04:00] VITALS: BP 112/70
[2021-12-07] MEDS: BLOOD SUGAR DIAGNOSTIC STRIP TEST SCH ×2 (06:38→11:58)
[2021-12-07] MEDS: FUROSEMIDE 100MG/10ML VIAL IVP SCH (06:38)
[2021-12-07] MEDS: INSULIN LISPRO 100 UNITS/ML SUBCUT SCH ×4 (06:44→12:00)
[2021-12-07 09:00] VITALS: BP 112/64
[2021-12-07] MEDS ORDERED: FUROSEMIDE 40MG TABLET PO NR (10:00)
[2021-12-07] MEDS: INSULIN GLARGINE UD 100 UNITS/ML SYR SUBCUT SCH (10:04)
[2021-12-07] MEDS: AMLODIPINE 5MG TABLET PO SCH (10:07)
[2021-12-07 10:54] VITALS: BP 112/64
[2021-12-07 11:12] VITALS: BP 112/64
== END 2021-12-07 11:33 | disposition home or self-care (01) | DRG 194 ==
LOC: ER 13:13 → 6EST 12-03 04:20 → ENRESERV 12-03 08:50
PROVIDERS: ADMIT Internal Medicine; ATTEND Internal Medicine
DX: I11.0 Hypertensive heart disease with heart failure (principal); I24.8 Other forms of acute ischemic heart disease; E87.1 Hypo-osmolality and hyponatremia; I50.33 Acute on chronic diastolic (congestive) heart failure; M94.0 Chondrocostal junction syndrome [Tietze]; E11.65 Type 2 diabetes mellitus with hyperglycemia; E66.01 Morbid (severe) obesity due to excess calories; E78.5 Hyperlipidemia, unspecified; Z20.822 Contact with and (suspected) exposure to COVID-19; J44.9 Chronic obstructive pulmonary disease, unspecified; Z82.49 Family history of ischemic heart disease and other diseases of the circulatory system; Z83.3 Family history of diabetes mellitus; Z91.19 Patient's noncompliance with other medical treatment and regimen; Z88.0 Allergy status to penicillin; Z88.8 Allergy status to other drugs, medicaments and biological substances; Z68.41 Body mass index [BMI] 40.0-44.9, adult
CPT/HCPCS: 36415; 71045; 80048; 80053; 82962; 83880; 84484; 85025; 85379; 87426; 93005; 94640; 99285; C1893; J1815; J1885; J1940; J7030

== ENCOUNTER 2021-12-12 13:31 | Inpatient (IN) | payer OTHER ==
[~2021-12-12] VITALS: Ht 177.8 cm; Wt 114.0 kg
[~2021-12-12 13:31] MED LIST changes: +AMLO5TAB88 MT; -FURO40TA5 MT; +FURO80TA87 MT; -OXYC-100 MT
[2021-12-12 14:58] LABS: BASOPHILS % 0.3 % (0.0-2.0); EOSINOPHILS % 0.1 % (0.0-5.0); HEMATOCRIT. 42.5 % (36.0-48.0); HEMOGLOBIN. 14.1 g/dL (12.0-16.0); LYMPHOCYTES % 21.5 % (20.0-50.0); MEAN CORPUSCULAR HEMOGLOBIN 29.8 pg (28.0-32.0); MEAN PLATELET VOLUME 9.6 fl (7.4-10.4); MONOCYTES % 8.6 % (2.0-8.0); NEUTROPHILS % 69.5 % (40.0-76.0); PLATELET 253 x1000/uL (130-400); RED BLOOD CELL COUNT 4.73 mill/uL (4.2-5.4); RED CELL DISTRIBUTION WIDTH 14.1 % (11.6-14.6)
[2021-12-12 15:02] LABS: CHLORIDE 102 mEq/L (98-107)
[2021-12-12] MEDS ORDERED: FUROSEMIDE 40MG/4ML VIAL IVP ONE (15:15)
[2021-12-12] MEDS ORDERED: ALBUTEROL (0.5%) 2.5MG/0.5ML NEB HHN ONE (16:15)
[2021-12-12] MEDS ORDERED: INSULIN REGULAR (HUMULIN R) 300UNITS/3ML VIAL IV NR (16:45)
[2021-12-12] MEDS ORDERED: ALBUTEROL (0.083%) 2.5MG/3ML NEB HHN STA (23:10)
[2021-12-12] MEDS ORDERED: IPRATROPIUM BROMIDE (0.02%) 0.5MG/2.5ML NEB HHN STA (23:10)
[2021-12-13] MEDS ORDERED: ALBUTEROL 6.7GM HFA INHALER ORI NR (08:45)
[2021-12-13] MEDS ORDERED: ACETAMINOPHEN 325MG TABLET PO PRN (12:45)
[2021-12-13] MEDS ORDERED: ONDANSETRON HCL 4MG/2ML INJ IV PRN (12:45)
[2021-12-13] MEDS ORDERED: DEXTROSE 50% WATER 50ML SYRINGE IV PRN (12:45)
[2021-12-13] MEDS ORDERED: METOLAZONE 2.5MG TABLET PO NR (12:49)
[2021-12-13] MEDS ORDERED: INSULIN GLARGINE UD 100 UNITS/ML SYR SUBCUT NR (13:30)
[2021-12-13] MEDS: FUROSEMIDE 100MG/10ML VIAL IVP SCH ×2 (14:51→18:23)
[2021-12-13] MEDS: POTASSIUM CHLORIDE 20MEQ TABLET SR PO SCH (14:51)
[2021-12-13] MEDS: BLOOD SUGAR DIAGNOSTIC STRIP TEST SCH ×2 (18:23→21:00)
[2021-12-13] MEDS: INSULIN LISPRO 100 UNITS/ML SUBCUT SCH ×2 (18:24→21:00)
[2021-12-13] MEDS: ENOXAPARIN 30MG/0.3ML SYR SUBCUT SCH (21:00)
[2021-12-13] MEDS: INSULIN GLARGINE UD 100 UNITS/ML SYR SUBCUT SCH (22:00)
[2021-12-14] MEDS: INSULIN LISPRO 100 UNITS/ML SUBCUT SCH ×4 (07:00→21:32)
[2021-12-14] MEDS: BLOOD SUGAR DIAGNOSTIC STRIP TEST SCH ×4 (08:00→21:15)
[2021-12-14] MEDS: FUROSEMIDE 100MG/10ML VIAL IVP SCH ×2 (09:00→17:00)
[2021-12-14] MEDS: ENOXAPARIN 30MG/0.3ML SYR SUBCUT SCH ×2 (09:00→21:00)
[2021-12-14] MEDS: POTASSIUM CHLORIDE 20MEQ TABLET SR PO SCH (09:00)
[2021-12-14] MEDS: INSULIN GLARGINE UD 100 UNITS/ML SYR SUBCUT SCH ×2 (10:00→21:33)
[2021-12-15 03:00] VITALS: BP 132/70
== END 2021-12-15 03:15 | disposition home or self-care (01) | DRG 194 ==
LOC: ER 13:31 → MICUSO 19:53
PROVIDERS: ADMIT Internal Medicine; ATTEND Internal Medicine
DX: I11.0 Hypertensive heart disease with heart failure (principal); U07.1 COVID-19; E44.0 Moderate protein-calorie malnutrition; I50.33 Acute on chronic diastolic (congestive) heart failure; E11.65 Type 2 diabetes mellitus with hyperglycemia; E66.9 Obesity, unspecified; E87.6 Hypokalemia; E87.1 Hypo-osmolality and hyponatremia; J44.9 Chronic obstructive pulmonary disease, unspecified; Z68.36 Body mass index [BMI] 36.0-36.9, adult; Z88.0 Allergy status to penicillin; Z88.6 Allergy status to analgesic agent; Z79.899 Other long term (current) drug therapy; Z71.3 Dietary counseling and surveillance; Z83.3 Family history of diabetes mellitus; Z82.49 Family history of ischemic heart disease and other diseases of the circulatory system
CPT/HCPCS: 36415; 71045; 80053; 82962; 83880; 84484; 85025; 87426; 93005; 94640; 99285; J1650; J1815; J1940